=== PATIENT | female | born 1940 | race Caucasian/White ===

== ENCOUNTER 2017-11-22 05:44 | Inpatient (IN) ==
--- NOTE | 2017-11-22 05:57 | Emergency Department Note ---
Disposition Clinical Impression: Altered mental status Qualifiers: Altered mental status type: unspecified Qualified Code(s): R41.82 - Altered mental status, unspecified Mastoiditis Qualifiers: Laterality: left Qualified Code(s): H70.92 - Unspecified mastoiditis, left ear Disposition: Still a Patient Condition: Fair Referrals: Heath Darnell MD [Primary Care Provider] - Forms: ED Satisfaction Letter Altered Mental Status HPI - General Chief Complaint: ED Altered Mental Status Stated Complaint: hypoglycemia Time Seen by Provider: 11/22/17 05:48 Source: patient, EMS Mode of arrival: EMS Limitations: altered mental status Nursing Notes Reviewed: Yes Vital Signs Reviewed: Yes - History of Present Illness HPI Narrative: 77-year-old female history of congestive heart failure, COPD, diabetes, chronic kidney disease who presents to the ER via EMS due to altered mental status. EMS reports when they first arrived she was 64 blood glucose. She received 1 amp of D50 with improvement of her sugar. Patient arrives alert and oriented 2. She is easily somnolent but arouses to verbal stimuli. She has vomited on her closed but does not remember throwing up. She currently denies any headache chest pain shortness of breath abdominal pain nausea or vomiting. There is report that they changed her diabetic medications a few days ago. She states that she take shots. No other complaints. MD complaint: altered mental status Onset (ago): unknown Associated symptoms: Reports: denies other symptoms Treatments prior to arrival: glucose - Related Data Home Medications Medication Instructions Recorded Confirmed Allopurinol 100 mg PO DAILY 08/08/16 06/17/17 Amlodipine Besylate 10 mg PO DAILY 08/08/16 06/17/17 Atorvastatin [Lipitor] 40 mg PO HS 08/08/16 06/17/17 Bimatoprost [Lumigan] 1 drop OP QPM 08/08/16 06/17/17 Calcitriol [Rocaltrol] 0.25 mcg PO DAILY 08/08/16 06/17/17 Cyclobenzaprine [Flexeril] 10 mg PO DAILY 08/08/16 06/17/17 Fluticasone/Salmeterol [Advair 1 each IH BID 08/08/16 06/17/17 250-50 Diskus] Furosemide [Lasix] 80 mg PO BID 08/08/16 06/17/17 Gabapentin [Neurontin] 100 mg PO TID 08/08/16 06/17/17 Hydralazine HCl 100 mg PO TID 08/08/16 06/17/17 Insulin LISPRO [HumaLOG] 35 units SQ TID 08/08/16 06/17/17 Linagliptin [Tradjenta] 5 mg PO DAILY 08/08/16 06/17/17 Metoprolol [Lopressor] 100 mg PO BID 08/08/16 06/17/17 Omeprazole [PriLOSEC] 20 mg PO DAILY 08/08/16 06/17/17 Oxygen 2 l NS AD 08/08/16 08/08/16 cloNIDine HCl [Clonidine HCl] 0.3 mg PO TID 08/08/16 06/17/17 Insulin Glargine,Hum.rec.anlog 65 unit SQ HS 06/17/17 06/17/17 [Basaglar Kwikpen U-100] Potassium Chloride [K-Tab ER] 20 meq PO QID 06/17/17 06/17/17 Previous Rx's Medication Instructions Recorded Aspirin 81 mg PO DAILY tab.chew 05/15/15 Clopidogrel [Plavix] 75 mg PO DAILY tablet 05/15/15 Levothyroxine [Synthroid] 150 mcg PO 0600 tablet 05/15/15 Ipratropium/Albuterol Neb [Duoneb] 3 ml IH Q4HR #30 vial.neb 11/22/16 Allergies Allergy/AdvReac Type Severity Reaction Status Date / Time carbamazepine Allergy Hives Verified 06/17/17 09:27 promethazine Allergy See Verified 06/17/17 09:27 Comments All systems ED: reviewed and negative except as stated. Constitutional: Denies: fever Cardiovascular: Denies: chest pain Respiratory: Denies: dyspnea Gastrointestinal: Denies: abdominal pain, nausea, vomiting Past Medical History - Past Medical History Attestation: Yes The following information was validated with the patient. 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 - Social History Smoking Status: Former smoker Smokeless Tobacco Status: No Alcohol use: Reports: none Drug use: Reports: none Physical Exam - General Limitations: altered mental status General appearance: alert, appears intoxicated - Head Head exam: atraumatic, normocephalic, normal inspection - Eye Eye exam: Present: normal appearance - ENT ENT exam: normal exam - Neck Neck exam: Present: normal inspection, full ROM - Chest Chest inspection: Present: normal inspection, symmetric chest wall rise - Respiratory Respiratory exam: Present: normal lung sounds bilaterally - Cardiovascular Cardiovascular exam: Present: regular rate, normal rhythm, normal heart sounds - Abdominal Exam Abdominal exam: Present: soft, Non-Tender, distention. Absent: tenderness, guarding, rigidity - Extremities Exam Extremities exam: Present: normal inspection, full ROM - Expanded Upper Extremity Exam Shoulder exam: Present: normal inspection, full ROM Arm exam: Present: normal inspection, full ROM Elbow exam: Present: normal inspection, full ROM Forearm/Wrist exam: Present: normal inspection, full ROM Hand exam: Present: normal inspection, full ROM - Expanded Lower Extremity Exam Hip/Pelvis exam: Present: normal inspection, full ROM Upper leg exam: Present: normal inspection, full ROM Knee exam: Present: normal inspection, full ROM Lower leg exam: Present: normal inspection, full ROM Ankle exam: Present: normal inspection, full ROM Foot/toe exam: Present: normal inspection, full ROM - Neurological Exam Neurological exam: Present: alert, other (GCS 14. Moves all extremities. No focal deficits.). Absent: oriented X3 - Expanded Neurological Exam Patient oriented to: Present: person, place Speech: Present: fluid speech Coma Scale Eye Opening: To Voice Coma Scale Motor Response: Obeys Commands Coma Scale Verbal Response: Oriented Coma Scale Total: 14 - Skin Skin exam: Present: warm, dry Course Course Narrative: Patient seen and examined the time of arrival. Accu-Chek of 205. She remains altered. We will get an EKG, chest x-ray as well as CT of the head, labs and urinalysis. Vital Signs Temperature 97.4 F L 11/22/17 05:45 Pulse Rate 64 11/22/17 05:45 Respiratory Rate 18 11/22/17 05:45 Blood Pressure 158/77 11/22/17 05:45 O2 Sat by Pulse Oximetry 97 11/22/17 05:45 Temperature 97.4 F L 11/22/17 05:45 Pulse Rate 62 11/22/17 06:28 Respiratory Rate 16 11/22/17 06:28 Blood Pressure 169/70 11/22/17 06:28 O2 Sat by Pulse Oximetry 97 11/22/17 06:28 Oxygen Delivery Oxygen Delivery Room Air Altered Mental Status - MDM Narrative Medical decision making narrative: 77-year-old female presents to the ER due to altered mental status. Initially was noted to be hypoglycemic at 60 and received D50 prior to arrival. Upon arrival she is alert and oriented 2. She has sluggish to respond. No focal deficits. CT scan of the head with concern for mastoiditis. X-ray with also concern for atelectatic changes versus pneumonia. Patient is signed out sedation team in stable condition pending results of laboratory analysis and final disposition. - Lab Data Lab Results 11/22/17 11/22/17 11/22/17 Range/Units 05:47 05:58 05:58 POC Glucose 205 H (58-89) Urine Color Yellow (Yellow) Urine Clarity Clear (Clear) Urine pH 7.5 (5.0-8.0) pH Units Ur Specific [place] 1.012 (1.010-1.025) Urine Protein 100 H (Neg-Trace) mg/dL Urine Glucose (UA) Normal (Normal) mg/dL Urine Ketones Negative (Negative) mg/dL Urine Blood Negative (Negative) Urine Nitrite Negative (Negative) Urine Bilirubin Negative (Negative) Urine Urobilinogen Normal (Normal) mg/dL Ur Leukocyte Esterase Negative (Negative) Urine Microscopic RBC 0-3 (0-3) per hpf Urine Microscopic WBC 0-3 (0-3) per hpf Ur Squamous Epith Cells Many H (None-Few) per lpf Urine Bacteria None Seen (None-Few) per hpf Hyaline Casts None Seen (None-Few) per lpf Ur Culture Indicated? NO (NO) Urine Opiates Screen Negative (Ebntax=177) ng/mL Ur Barbiturates Screen Negative (Vvvomc=479) ng/mL Ur Phencyclidine Scrn Negative (Cutoff=25) ng/mL Ur Amphetamines Screen Negative (Vbnqcm=1433) ng/mL U Benzodiazepines Scrn Negative (Xbbsji=495) ng/mL Urine Cocaine Screen Negative (Cutoff= 300) ng/mL U Marijuana (THC) Screen Negative (Cutoff = 50) ng/mL - Radiology Data Radiology results reviewed: Yes I reviewed the patient's radiology results. Chest X-Ray 11/22/17 05:54 IMPRESSION: Development of right middle lobe airspace disease, likely atelectasis versus aspiration or pneumonia. D/ / Jovi Martinez / Jovi Martinez Interpreting Provider: Jovi Martinez Head CT 11/22/17 05:55 IMPRESSION: No acute intracranial abnormality. Left-sided mastoiditis and bilateral sphenoid sinusitis. D/ / Kristian Quintanilla MD / Kristian Quintanilla MD Interpreting Provider: Kristian Quintanilla MD - EKG Data EKG attestation: Yes I reviewed and interpreted this EKG. EKG results narrative: EKG demonstrates sinus rhythm with a rate of 67 bpm. Normal axis. First- degree AV block with prolonged PA interval of 244. Intervals normal. Normal R- wave progression. No gross ST elevations or depressions. No acute ischemic findings. No significant changes from previous EKG dated 11/22/16. Attestation Statement - Attestation Attestation: I, Zeferino Hernandez MD, personally evaluated this patient and discussed their management with the resident physician. I reviewed the resident's note and agree with the documented findings, medical decision making, and plan of care. 77-year-old female presents to the emergency department for altered mental status. Patient is insulin-dependent diabetic and apparently recently had her medication doses changes. EMS reports that she normally runs around 200 blood sugar and at the scene her blood sugar was 60. She did receive an amp of D50 with some improvement in her mental status. On arrival here the patient is still somewhat disoriented and slow to respond. She has no specific complaints. She denies any pain. She does not remember vomiting but has emesis on her clothes. On examination patient is a well-developed obese elderly female in no acute distress. She responds to verbal stimuli but is drowsy and slow to respond. Fingerstick blood sugar was 205. No cyanosis or diaphoresis. Breath sounds are equal bilaterally with a few scattered bilateral expiratory wheezes. Heart regular rate and rhythm. Abdomen soft with normal bowel sounds. No gross focal neurological deficits noted. Chest x-ray shows development of right middle lobe airspace disease, likely atelectasis versus aspiration or pneumonia. Head CT shows no acute intracranial abnormality. Left-sided mastoiditis and bilateral sphenoid sinusitis. Urinalysis negative. Urine tox screen negative. Other labs pending. At shift change patient is signed out to the oncoming dayshift physician, Dr. Farideh Page.
[2017-11-22 06:12] LABS: Amphetamine Screen,Urine Negative ng/mL (Cutoff=1000); Barbiturate Screen,Urine Negative ng/mL (Cutoff=200); Benzodiazepines Screen,Urine Negative ng/mL (Cutoff=200); Cannabinoid Screen,Urine Negative ng/mL (Cutoff = 50); Cocaine Screen,Urine Negative ng/mL (Cutoff= 300); Opiate Screen,Urine Negative ng/mL (Cutoff=300); Phencyclidine Screen,Urine Negative ng/mL (Cutoff=25)
[2017-11-22 06:36] LABS: Bilirubin,Urine Negative (Negative); Blood,Urine Negative (Negative); Clarity,Urine Clear (Clear); Color,Urine Yellow (Yellow); Glucose,Urine (UA) Normal (Normal); Ketones,Urine Negative (Negative); Leukocyte Esterase,Urine Negative (Negative); Nitrite,Urine Negative (Negative); PH,Urine 7.5 pH Units (5.0-8.0); Protein,Urine 100 mg/dL (Neg-Trace); Specific Gravity,Urine 1.012 (1.010-1.025); Urobilinogen,Urine Normal (Normal)
[2017-11-22 06:38] LABS: Bacteria,Urine None Seen per hpf (None-Few); Hyaline Casts,Urine None Seen per lpf (None-Few); RBC,Urine 0-3 per hpf (0-3); Squamous Epithelial Cell,Urine Many per lpf (None-Few); WBC,Urine 0-3 per hpf (0-3)
[2017-11-22 06:52] LABS: Basophils % 0.2 %; Eosinophils % 0.2 %; Hematocrit 33.2 % (35.3-44.9); Hemoglobin 10.4 g/dL (11.5-15.4); Immature Granulocytes % 0.5 % (0-4); Lymphocytes # 1.3 K/mcL (0.6-4.6); Lymphocytes % 13.4 %; Mean Corpuscular HGB Conc 31.3 g/dL (31.6-35.5); Mean Corpuscular Hemoglobin 29.6 pg (28.0-33.3); Mean Corpuscular Volume 94.6 fL (83.0-100.0); Mean Platelet Volume 9.7 fL (9.4-12.4); Monocytes # 0.4 K/mcL (0.0-1.3); Monocytes % 4.2 %; Neutrophils # 7.6 K/mcL (1.6-8.9); Platelet Count 202 K/mcL (140-400); Red Blood Count 3.51 M/mcL (3.82-4.97); Red Cell Distribution Width 17.2 % (11.5-14.5); Segmented Neutrophils % 81.5 %
[2017-11-22 06:58] LABS: INR 1.1; Prothrombin Time 11.3 Seconds (9.4-12.1)
[2017-11-22 07:00] LABS: Activated Partial Thrombo Time 27.8 Seconds (26.0-36.0)
[2017-11-22 07:10] LABS: Albumin 3.8 g/dL (3.5-5.7); Albumin/Globulin Ratio 1.1 (1.1-2.2); Bilirubin,Direct 0.1 mg/dL (0.0-0.2); Bilirubin,Indirect 0.3 mg/dL (0.0-1.2); Bilirubin,Total 0.4 mg/dL (0.3-1.0); Calcium 8.4 mg/dL (8.6-10.3); Globulin 3.6 g/dL (2.4-3.5); Potassium 3.7 mEq/L (3.5-5.1); Total Protein 7.4 g/dL (6.4-8.9)
--- NOTE | 2017-11-22 07:16 | Emergency Department Note ---
START Narrative - START START: I examined this patient and my medical decision-making was reviewed with the Resident Physician. I agree with the documented findings, disposition and treatment plan as described except to the extent set forth below. accepted sign out from the night team (guy/Kimber) and plan is to followup on the labs and admit he for altered mental status. Amadou has had in jury to her abdomen yesterday and she sttes that seh feels incresingly more conused. HCT shows mastoiditis, and her CXR appers to have worsened from previous. Concern for pnuemonia. We will futher investigate the abdominal echhymosis with US and possibly ABCT. Amadou will be admitted to medicine today
[2017-11-22 07:28] LABS: Thyroid Stimulating Hormone 2.595 mcIU/mL (0.340-5.600)
--- NOTE | 2017-11-22 07:29 | Emergency Department Note ---
Disposition Clinical Impression: Altered mental status Qualifiers: Altered mental status type: unspecified Qualified Code(s): R41.82 - Altered mental status, unspecified Mastoiditis Qualifiers: Laterality: left Qualified Code(s): H70.92 - Unspecified mastoiditis, left ear Pneumonia Qualifiers: Pneumonia type: due to unspecified organism Laterality: right Lung location: middle lobe of lung Qualified Code(s): J18.1 - Lobar pneumonia, unspecified organism Disposition: Admitted As Inpatient Condition: Fair Time of Disposition: 08:37 Altered Mental Status HPI - General Chief Complaint: ED Altered Mental Status Stated Complaint: hypoglycemia Time Seen by Provider: 11/22/17 05:48 Source: patient, EMS Mode of arrival: EMS Limitations: altered mental status Nursing Notes Reviewed: Yes Vital Signs Reviewed: Yes - History of Present Illness Associated symptoms: Reports: denies other symptoms - Related Data Home Medications Medication Instructions Recorded Confirmed Allopurinol 100 mg PO DAILY 08/08/16 06/17/17 Amlodipine Besylate 10 mg PO DAILY 08/08/16 06/17/17 Atorvastatin [Lipitor] 40 mg PO HS 08/08/16 06/17/17 Bimatoprost [Lumigan] 1 drop OP QPM 08/08/16 06/17/17 Calcitriol [Rocaltrol] 0.25 mcg PO DAILY 08/08/16 06/17/17 Cyclobenzaprine [Flexeril] 10 mg PO DAILY 08/08/16 06/17/17 Fluticasone/Salmeterol [Advair 1 each IH BID 08/08/16 06/17/17 250-50 Diskus] Furosemide [Lasix] 80 mg PO BID 08/08/16 06/17/17 Gabapentin [Neurontin] 100 mg PO TID 08/08/16 06/17/17 Hydralazine HCl 100 mg PO TID 08/08/16 06/17/17 Insulin LISPRO [HumaLOG] 35 units SQ TID 08/08/16 06/17/17 Linagliptin [Tradjenta] 5 mg PO DAILY 08/08/16 06/17/17 Metoprolol [Lopressor] 100 mg PO BID 08/08/16 06/17/17 Omeprazole [PriLOSEC] 20 mg PO DAILY 08/08/16 06/17/17 Oxygen 2 l NS AD 08/08/16 08/08/16 cloNIDine HCl [Clonidine HCl] 0.3 mg PO TID 08/08/16 06/17/17 Insulin Glargine,Hum.rec.anlog 65 unit SQ HS 06/17/17 06/17/17 [Basaglar Arthurikpen U-100] Potassium Chloride [K-Tab ER] 20 meq PO QID 06/17/17 06/17/17 Previous Rx's Medication Instructions Recorded Aspirin 81 mg PO DAILY tab.chew 05/15/15 Clopidogrel [Plavix] 75 mg PO DAILY tablet 05/15/15 Levothyroxine [Synthroid] 150 mcg PO 0600 tablet 05/15/15 Ipratropium/Albuterol Neb [Duoneb] 3 ml IH Q4HR #30 vial.neb 11/22/16 Allergies Allergy/AdvReac Type Severity Reaction Status Date / Time carbamazepine Allergy Hives Verified 06/17/17 09:27 promethazine Allergy See Verified 06/17/17 09:27 Comments Constitutional: Denies: fever Cardiovascular: Denies: chest pain Respiratory: Denies: dyspnea Gastrointestinal: Denies: abdominal pain, nausea, vomiting Past Medical History - Past Medical History Medical history: Reports: CHF, COPD, coronary artery disease, diabetes, GERD, hyperlipidemia, hypertension, renal disease Surgical history: Reports: breast surgery, cataract, hysterectomy, thyroidectomy , other Psychiatric history: Reports: anxiety 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 Escamilla at 0700. Please see his note for earlier documentation. Patient is a 77-year-old female with altered mental status. Glucose was 64 when EMS picked her up. Now in the 200s. Patient is awake alert and not as responsive as she normally is per family at the bedside. Recent change in her diabetic insulin medication. Patient had also fallen the night before. FAST exam negative. Patient does not have any abdominal pain. CT head shows possible left mastoiditis and sinusitis. Chest x-ray shows atelectasis/pneumonia. UA/UDS negative. Awaiting lab work. Plan for admission for AMS. - Reevaluation(s) Reevaluation #1: Labwork unremarkable. Patient has baseline anemia and CKD. Since her chest x- ray shows some signs of pneumonia, we will we will cover her with IV Levaquin. Blood culture ordered first. Will admit for altered mental status, pneumonia, weakness. I discussed with hospitalist Dr. Murray who has accepted patient for admission. He would like a VBG drawn. This was ordered. Time: 08:35 Vital Signs Temperature 97.4 F L 11/22/17 05:45 Pulse Rate 64 11/22/17 05:45 Respiratory Rate 18 11/22/17 05:45 Blood Pressure 158/77 11/22/17 05:45 O2 Sat by Pulse Oximetry 97 11/22/17 05:45 Temperature 97.4 F L 11/22/17 05:45 Pulse Rate 68 11/22/17 08:45 Respiratory Rate 18 11/22/17 08:45 Blood Pressure 154/60 11/22/17 08:45 O2 Sat by Pulse Oximetry 98 11/22/17 08:45 Oxygen Delivery Oxygen Delivery Nasal Cannula Altered Mental Status - Medical Records Medical records reviewed: Yes I reviewed the patient's medical records. - Lab Data Lab results reviewed: Yes I reviewed the patient's lab results. Result diagrams: 11/22/17 06:45 11/22/17 06:45 Lab Results 11/22/17 11/22/17 11/22/17 Range/Units 05:47 05:58 05:58 WBC (4.3-11.1) K/mcL RBC (3.82-4.97) M/mcL Hgb (11.5-15.4) g/dL Hct (35.3-44.9) % MCV (83.0-100.0) fL MCH (28.0-33.3) pg MCHC (31.6-35.5) g/dL RDW (11.5-14.5) % Plt Count (140-400) K/mcL MPV (9.4-12.4) fL Immature Gran % (0-4) % Seg Neutrophils % % Lymphocytes % % Monocytes % % Eosinophils % % Basophils % % Neutrophils # (1.6-8.9) K/mcL Lymphocytes # (0.6-4.6) K/mcL Monocytes # (0.0-1.3) K/mcL Eosinophils # (0.0-0.6) K/mcL Basophils # (0.0-0.2) K/mcL PT (9.4-12.1) Seconds INR APTT (26.0-36.0) Seconds VBG pH (7.32-7.42) pH Units VBG pCO2 (41-51) mmHg VBG pO2 (25-50) mmHg VBG HCO3 (21-27) mEq/L Sodium (136-145) mEq/L Potassium (3.5-5.1) mEq/L Chloride (98-107) mEq/L Carbon Dioxide (23-29) mEq/L BUN (8-23) mg/dL Creatinine (0.60-1.20) mg/dL Est GFR ( Amer) (> 60) Est GFR (Non-Af Amer) (> 60) BUN/Creatinine Ratio (6-26) Glucose (70-105) mg/dL POC Glucose 205 H (58-89) Calculated Osmolality (280-300) Calcium (8.6-10.3) mg/dL Total Bilirubin (0.3-1.0) mg/dL Direct Bilirubin (0.0-0.2) mg/dL Indirect Bilirubin (0.0-1.2) mg/dL AST (13-39) Units/L ALT (7-52) Units/L Alkaline Phosphatase (34-104) Units/L Ammonia (16-53) mcmol/L Troponin I (< 0.04) ng/mL Serum Total Protein (6.4-8.9) g/dL Albumin (3.5-5.7) g/dL Globulin (2.4-3.5) g/dL Albumin/Globulin Ratio (1.1-2.2) TSH (0.340-5.600) mcIU/mL Urine Color Yellow (Yellow) Urine Clarity Clear (Clear) Urine pH 7.5 (5.0-8.0) pH Units Ur Specific [place] 1.012 (1.010-1.025) Urine Protein 100 H (Neg-Trace) mg/dL Urine Glucose (UA) Normal (Normal) mg/dL Urine Ketones Negative (Negative) mg/dL Urine Blood Negative (Negative) Urine Nitrite Negative (Negative) Urine Bilirubin Negative (Negative) Urine Urobilinogen Normal (Normal) mg/dL Ur Leukocyte Esterase Negative (Negative) Urine Microscopic RBC 0-3 (0-3) per hpf Urine Microscopic WBC 0-3 (0-3) per hpf Ur Squamous Epith Cells Many H (None-Few) per lpf Urine Bacteria None Seen (None-Few) per hpf Hyaline Casts None Seen (None-Few) per lpf Ur Culture Indicated? NO (NO) Urine Opiates Screen Negative (Wwrgii=075) ng/mL Ur Barbiturates Screen Negative (Lnmgpi=187) ng/mL Ur Phencyclidine Scrn Negative (Cutoff=25) ng/mL Ur Amphetamines Screen Negative (Nwfzbx=7242) ng/mL U Benzodiazepines Scrn Negative (Chlerh=361) ng/mL Urine Cocaine Screen Negative (Cutoff= 300) ng/mL U Marijuana (THC) Screen Negative (Cutoff = 50) ng/mL 11/22/17 11/22/17 11/22/17 Range/Units 06:45 06:45 06:45 WBC 9.3 (4.3-11.1) K/mcL RBC 3.51 L (3.82-4.97) M/mcL Hgb 10.4 L (11.5-15.4) g/dL Hct 33.2 L (35.3-44.9) % MCV 94.6 (83.0-100.0) fL MCH 29.6 (28.0-33.3) pg MCHC 31.3 L (31.6-35.5) g/dL RDW 17.2 H (11.5-14.5) % Plt Count 202 (140-400) K/mcL MPV 9.7 (9.4-12.4) fL Immature Gran % 0.5 (0-4) % Seg Neutrophils % 81.5 % Lymphocytes % 13.4 % Monocytes % 4.2 % Eosinophils % 0.2 % Basophils % 0.2 % Neutrophils # 7.6 (1.6-8.9) K/mcL Lymphocytes # 1.3 (0.6-4.6) K/mcL Monocytes # 0.4 (0.0-1.3) K/mcL Eosinophils # 0.0 (0.0-0.6) K/mcL Basophils # 0.0 (0.0-0.2) K/mcL PT 11.3 (9.4-12.1) Seconds INR 1.1 APTT 27.8 (26.0-36.0) Seconds VBG pH (7.32-7.42) pH Units VBG pCO2 (41-51) mmHg VBG pO2 (25-50) mmHg VBG HCO3 (21-27) mEq/L Sodium 137 (136-145) mEq/L Potassium 3.7 (3.5-5.1) mEq/L Chloride 98 (98-107) mEq/L Carbon Dioxide 25 (23-29) mEq/L BUN 34 H (8-23) mg/dL Creatinine 1.48 H (0.60-1.20) mg/dL Est GFR ( Amer) 41 L (> 60) Est GFR (Non-Af Amer) 34 L (> 60) BUN/Creatinine Ratio 23 (6-26) Glucose 154 H (70-105) mg/dL POC Glucose (58-89) Calculated Osmolality 295 (280-300) Calcium 8.4 L (8.6-10.3) mg/dL Total Bilirubin 0.4 (0.3-1.0) mg/dL Direct Bilirubin 0.1 (0.0-0.2) mg/dL Indirect Bilirubin 0.3 (0.0-1.2) mg/dL AST 39 (13-39) Units/L ALT 35 (7-52) Units/L Alkaline Phosphatase 82 (34-104) Units/L Ammonia (16-53) mcmol/L Troponin I (< 0.04) ng/mL Serum Total Protein 7.4 (6.4-8.9) g/dL Albumin 3.8 (3.5-5.7) g/dL Globulin 3.6 H (2.4-3.5) g/dL Albumin/Globulin Ratio 1.1 (1.1-2.2) TSH 2.595 (0.340-5.600) mcIU/mL Urine Color (Yellow) Urine Clarity (Clear) Urine pH (5.0-8.0) pH Units Ur Specific [place] (1.010-1.025) Urine Protein (Neg-Trace) mg/dL Urine Glucose (UA) (Normal) mg/dL Urine Ketones (Negative) mg/dL Urine Blood (Negative) Urine Nitrite (Negative) Urine Bilirubin (Negative) Urine Urobilinogen (Normal) mg/dL Ur Leukocyte Esterase (Negative) Urine Microscopic RBC (0-3) per hpf Urine Microscopic WBC (0-3) per hpf Ur Squamous Epith Cells (None-Few) per lpf Urine Bacteria (None-Few) per hpf Hyaline Casts (None-Few) per lpf Ur Culture Indicated? (NO) Urine Opiates Screen (Uzsutm=798) ng/mL Ur Barbiturates Screen (Yfzayd=315) ng/mL Ur Phencyclidine Scrn (Cutoff=25) ng/mL Ur Amphetamines Screen (Oelovt=6368) ng/mL U Benzodiazepines Scrn (Gncble=449) ng/mL Urine Cocaine Screen (Cutoff= 300) ng/mL U Marijuana (THC) Screen (Cutoff = 50) ng/mL 11/22/17 11/22/17 11/22/17 Range/Units 06:45 06:45 08:59 WBC (4.3-11.1) K/mcL RBC (3.82-4.97) M/mcL Hgb (11.5-15.4) g/dL Hct (35.3-44.9) % MCV (83.0-100.0) fL MCH (28.0-33.3) pg MCHC (31.6-35.5) g/dL RDW (11.5-14.5) % Plt Count (140-400) K/mcL MPV (9.4-12.4) fL Immature Gran % (0-4) % Seg Neutrophils % % Lymphocytes % % Monocytes % % Eosinophils % % Basophils % % Neutrophils # (1.6-8.9) K/mcL Lymphocytes # (0.6-4.6) K/mcL Monocytes # (0.0-1.3) K/mcL Eosinophils # (0.0-0.6) K/mcL Basophils # (0.0-0.2) K/mcL PT (9.4-12.1) Seconds INR APTT (26.0-36.0) Seconds VBG pH 7.42 (7.32-7.42) pH Units VBG pCO2 49 (41-51) mmHg VBG pO2 57 H (25-50) mmHg VBG HCO3 31 H (21-27) mEq/L Sodium (136-145) mEq/L Potassium (3.5-5.1) mEq/L Chloride (98-107) mEq/L Carbon Dioxide (23-29) mEq/L BUN (8-23) mg/dL Creatinine (0.60-1.20) mg/dL Est GFR ( Amer) (> 60) Est GFR (Non-Af Amer) (> 60) BUN/Creatinine Ratio (6-26) Glucose (70-105) mg/dL POC Glucose (58-89) Calculated Osmolality (280-300) Calcium (8.6-10.3) mg/dL Total Bilirubin (0.3-1.0) mg/dL Direct Bilirubin (0.0-0.2) mg/dL Indirect Bilirubin (0.0-1.2) mg/dL AST (13-39) Units/L ALT (7-52) Units/L Alkaline Phosphatase (34-104) Units/L Ammonia 30 (16-53) mcmol/L Troponin I < 0.03 (< 0.04) ng/mL Serum Total Protein (6.4-8.9) g/dL Albumin (3.5-5.7) g/dL Globulin (2.4-3.5) g/dL Albumin/Globulin Ratio (1.1-2.2) TSH (0.340-5.600) mcIU/mL Urine Color (Yellow) Urine Clarity (Clear) Urine pH (5.0-8.0) pH Units Ur Specific [place] (1.010-1.025) Urine Protein (Neg-Trace) mg/dL Urine Glucose (UA) (Normal) mg/dL Urine Ketones (Negative) mg/dL Urine Blood (Negative) Urine Nitrite (Negative) Urine Bilirubin (Negative) Urine Urobilinogen (Normal) mg/dL Ur Leukocyte Esterase (Negative) Urine Microscopic RBC (0-3) per hpf Urine Microscopic WBC (0-3) per hpf Ur Squamous Epith Cells (None-Few) per lpf Urine Bacteria (None-Few) per hpf Hyaline Casts (None-Few) per lpf Ur Culture Indicated? (NO) Urine Opiates Screen (Odjjof=206) ng/mL Ur Barbiturates Screen (Lmioag=531) ng/mL Ur Phencyclidine Scrn (Cutoff=25) ng/mL Ur Amphetamines Screen (Ljvofw=4455) ng/mL U Benzodiazepines Scrn (Znidkj=361) ng/mL Urine Cocaine Screen (Cutoff= 300) ng/mL U Marijuana (THC) Screen (Cutoff = 50) ng/mL - Radiology Data Radiology results reviewed: Yes I reviewed the patient's radiology results. Chest X-Ray 11/22/17 05:54 IMPRESSION: Development of right middle lobe airspace disease, likely atelectasis versus aspiration or pneumonia. D/ / Jovi Martinez / Jovi Martinez Interpreting Provider: Jovi Martinez Head CT 11/22/17 05:55 IMPRESSION: No acute intracranial abnormality. Left-sided mastoiditis and bilateral sphenoid sinusitis. D/ / Kristian Quintanilla MD / Kristian Quintanilla MD Interpreting Provider: Kristian Quintanilla MD Checklist - LKW: 3-4.5 hrs Add. Warnings/Precautions Patient/family understanding: The patient/family members have been counseled and understood the risk, benefit , and alternatives of treatment.
[2017-11-22] MEDS ORDERED: Levofloxacin 750 MG/150 ML 750 MG/150 ML BAG IVPB ONE (08:04)
[2017-11-22 09:03] LABS: VBG HCO3 31 mEq/L (21-27); VBG PCO2 49 mmHg (41-51); VBG PH 7.42 pH Units (7.32-7.42); VBG PO2 57 mmHg (25-50)
[2017-11-22] MEDS ORDERED: Naloxone 0.4 MG/ML INJ IVP PRN (10:32)
[2017-11-22] MEDS ORDERED: Acetaminophen 325 MG TABLET PO PRN (10:32)
[2017-11-22] MEDS ORDERED: Dextrose Gel 15 GM/37.5 ML TUBE PO PRN ×2 (10:41)
[2017-11-22] MEDS ORDERED: D5% in Water 1,000 ML IVC PRN (10:41)
[2017-11-22] MEDS ORDERED: *HR* Dextrose 50 % in Water (Syg) 50 ML SYRINGE IVP PRN (10:41)
--- NOTE | 2017-11-22 10:44 | Internal Med History&Physical ---
Date of Encounter: 11/22/17 Time of Encounter: 10:44 Assessment and Plan (1) Metabolic encephalopathy Current visit: Yes Status: Acute Likely secondary to pneumonia, hypoglycemia and possibly compounded by polypharmacy and renal failure. We will treat pneumonia. Monitor blood glucose 4 times daily. Hold long- acting insulin. [place] fall precautions. (2) Type 2 diabetes mellitus, with long-term current use of insulin Current visit: Yes Status: Acute Qualifiers: Diabetes mellitus complication status: with kidney complications Diabetes mellitus complication detail: with chronic kidney disease Chronic kidney disease stage: stage 3 (moderate) Qualified Code(s): E11.22 - Type 2 diabetes mellitus with diabetic chronic kidney disease; N18.3 - Chronic kidney disease, stage 3 (moderate); N18.3 - Chronic kidney disease, stage 3 (moderate); Z79.4 - local company intermodal truck driver (current) use of insulin; Z79.4 - local company intermodal truck driver (current) use of insulin; Z79.4 - group home (current) use of insulin; Z79.4 - group home (current) use of insulin (3) Pneumonia Current visit: Yes Status: Acute IV Levaquin. Follow-up blood cultures. Obtain Legionella and pneumococcal antigens. Check pro calcitonin. Supplemental oxygen by nasal cannula. Curb 65 is 3 which carries a 14% 30 day mortality risk. Qualifiers: Pneumonia type: due to unspecified organism Laterality: right Lung location: middle lobe of lung Qualified Code(s): J18.1 - Lobar pneumonia, unspecified organism (4) COPD (chronic obstructive pulmonary disease) Current visit: No Status: Acute Inhaled albuterol and ipratropium. Qualifiers: COPD type: unspecified COPD Qualified Code(s): J44.9 - Chronic obstructive pulmonary disease, unspecified (5) Morbid obesity Current visit: No Status: Acute (6) Stage III chronic kidney disease Current visit: No Status: Chronic Monitor kidney function. Hold Lasix due to volume depletion. (7) DVT prophylaxis Current visit: Yes Status: Acute Subcutaneous Lovenox Internal Medicine - H&P: HPI Chief complaint: Mental confusion Admitted From: Emergency Dept Plans for Post Hospital Care: Home History of present illness: Ms. Hall is a 77 year old female with past medical history significant for hypertension COPD CAD diabetes, morbid obesity, hyperlipidemia, chronic renal insufficiency who presented to the hospital brought by EMS for evaluation of confusion and low blood glucose. History provided by the patient is limited by confusion. Per the patient's son she was severely confused early this morning. Her daughter gave her apple juice and called EMS. Her leukocytosis was 64. She was given IV dextrose and brought to the hospital. She reports a history of fall cannot provide details. In the emergency department blood glucose was in the 200s. Chest x-ray shows right middle lobe infiltrate. She was given IV fluids and IV antibiotics and referred for admission. Review of systems: Also complains of abdominal pain, cannot elaborate. The remainder of a 10 point review of systems is negative. Past Med Surg Social Fam HX - Past Medical History Medical history: CHF, COPD, coronary artery disease, diabetes, GERD, hyperlipidemia, hypertension, renal disease Psychiatric history: anxiety - Past Surgical History Surgical History: breast surgery, cataract, hysterectomy, thyroidectomy, other - Social History Smoking Status: Former smoker Smokeless Tobacco Status: No Alcohol use: none Drug use: none - Family History Mother Family Member Ethnicity: Non- Living Status: Hx Family Neurologic Disorders: Yes (Alzheimers) Brother Family Member Ethnicity: Non- Living Status: Still Living Hx Family Cardiac Disorders: Yes (CABG) Internal Medicine - H&P: Meds Aspirin 81 mg PO DAILY tab.chew 05/15/15 [Rx] Clopidogrel [Plavix] 75 mg PO DAILY tablet 05/15/15 [Rx] Allopurinol 100 mg PO DAILY 08/08/16 [History] Amlodipine Besylate 10 mg PO DAILY 08/08/16 [History] Atorvastatin [Lipitor] 40 mg PO HS 08/08/16 [History] Bimatoprost [Lumigan] 1 drop OP QPM 08/08/16 [History] Calcitriol [Rocaltrol] 0.25 mcg PO DAILY 08/08/16 [History] Cyclobenzaprine [Flexeril] 10 mg PO HS 08/08/16 [History] Fluticasone/Salmeterol [Advair 250-50 Diskus] 1 puff IH BID 08/08/16 [History] Furosemide [Lasix] 80 mg PO BID 08/08/16 [History] Gabapentin [Neurontin] 100 mg PO TID 08/08/16 [History] Hydralazine HCl 100 mg PO TID 08/08/16 [History] Linagliptin [Tradjenta] 5 mg PO DAILY 08/08/16 [History] Metoprolol [Lopressor] 100 mg PO BID 08/08/16 [History] Omeprazole [PriLOSEC] 20 mg PO BID 08/08/16 [History] Oxygen 2 l NS AD 08/08/16 [History] cloNIDine HCl [Clonidine HCl] 0.3 mg PO TID 08/08/16 [History] Ipratropium/Albuterol Neb [Duoneb] 3 ml IH Q4HR #30 vial.neb 11/22/16 [Rx] Potassium Chloride [K-Tab ER] 20 meq PO QID 06/17/17 [History] Insulin Regular, Human [Humulin R U-500 Kwikpen] 70 unit SQ HS 11/22/17 [History ] Insulin Regular, Human [Humulin R U-500 Kwikpen] 80 unit SQ QAM 11/22/17 [ History] Isosorbide MONOnitrate (24 HR) [Imdur] 60 mg PO DAILY 11/22/17 [History] Levothyroxine [Synthroid] 150 mcg PO QAM 11/22/17 [History] 3 Allergy/AdvReac Type Severity Reaction Status Date / Time carbamazepine Allergy Hives Verified 06/17/17 09:27 promethazine Allergy See Verified 06/17/17 09:27 Comments All Systems PM: A 10-system review of systems was performed and is negative for pertinent findings except as documented above in the HPI. - Constitutional Vitals: Temp Pulse Resp BP Pulse Ox 97.4 F L 68 18 154/60 98 11/22/17 05:45 11/22/17 08:45 11/22/17 08:45 11/22/17 08:45 11/22/17 08:45 General appearance: Present: A&O X 2, mild distress - Eye Eye exam: Present: PERRL, conjuntiva pink, sclera anicteric Pupils: Present: PERRL - Respiratory Respiratory exam: Present: CTAB. Absent: accessory muscle use, rales, rhonchi, wheezes - Cardiovascular Cardiovascular exam: Present: RRR, +S1, +S2. Absent: diastolic murmur, gallop, rubs, systolic murmur - GI/Abdominal GI/Abdominal exam: Present: normal bowel sounds, soft, no peritoneal signs. Absent: distended, hernia, tenderness - Extremities Exam Extremities exam: Present: warm, radial pulses palpable and symmetrical. Absent : calf tenderness, cyanotic, pedal edema - Neurological Exam Neurological exam: Present: CN II-XII intact, oriented X3, no focal deficits. Absent: facial droop, speech deficit - Skin Skin exam: Present: dry, intact Internal Med - H&P Results - Labs CBC & Chem 7: 11/22/17 06:45 11/22/17 06:45
[2017-11-22] MEDS ORDERED: Levofloxacin 750 MG/150 ML 750 MG/150 ML BAG IVPB SCH (11:00)
[2017-11-22] MEDS: Ipratropium/Albuterol Neb 3 ML IH SCH ×5 (11:35→19:58)
[2017-11-22] MEDS: Insulin LISPRO 300 UNITS/3 ML VIAL SQ SCH ×5 (12:26→20:35)
[2017-11-22] MEDS ORDERED: Simethicone 80 MG TAB.CHEW PO PRN (13:45)
[2017-11-22] MEDS: Gabapentin 100 MG CAPSULE PO SCH ×2 (14:24→20:32)
[2017-11-22] MEDS: Aspirin 81 MG TAB.CHEW PO SCH (14:24)
[2017-11-22] MEDS: cloNIDine HCl 0.1 MG TABLET PO SCH ×2 (14:24→20:32)
[2017-11-22] MEDS ORDERED: Ondansetron 4 MG/2 ML VIAL IVP PRN (14:32)
[2017-11-22] MEDS ORDERED: HYDRALAZINE HCL 100 MG PO SCH (15:00)
[2017-11-22] MEDS ORDERED: NON-FORMULARY MEDICATION 1 EACH EACH (Potassium Chloride [K-Tab Er] 20 MEQ) PO SCH (17:00)
[2017-11-22] MEDS: hydrALAZINE 25 MG TABLET PO SCH (17:54)
[2017-11-22] MEDS: (Bimatoprost [Lumigan] 1 DROP) OP SCH (17:56)
[2017-11-22] MEDS: Budesonide/Formoterol 80/4.5 MDI IH SCH (19:53)
[2017-11-22] MEDS: Metoprolol 100 MG TABLET PO SCH (20:34)
[2017-11-23] MEDS: Ipratropium/Albuterol Neb 3 ML IH SCH ×9 (00:11→20:32)
[2017-11-23] MEDS: hydrALAZINE 25 MG TABLET PO SCH ×4 (00:22→23:50)
[2017-11-23 03:30] LABS: Hematocrit 29.9 % (35.3-44.9); Hemoglobin 9.7 g/dL (11.5-15.4); Immature Granulocytes % 0.5 % (0-4); Lymphocytes # 1.6 K/mcL (0.6-4.6); Lymphocytes % 22.3 %; Mean Corpuscular HGB Conc 32.4 g/dL (31.6-35.5); Mean Corpuscular Hemoglobin 29.6 pg (28.0-33.3); Mean Corpuscular Volume 91.2 fL (83.0-100.0); Mean Platelet Volume 9.6 fL (9.4-12.4); Monocytes # 0.5 K/mcL (0.0-1.3); Monocytes % 6.7 %; Neutrophils # 5.2 K/mcL (1.6-8.9); Platelet Count 241 K/mcL (140-400); Red Blood Count 3.28 M/mcL (3.82-4.97); Red Cell Distribution Width 17.4 % (11.5-14.5); Segmented Neutrophils % 70.5 %
[2017-11-23 05:50] LABS: Calcium 7.8 mg/dL (8.6-10.3); Potassium 4.5 mEq/L (3.5-5.1)
[2017-11-23] MEDS: *HR* Enoxaparin 30 MG/0.3 ML SYRINGE SQ SCH (06:05)
[2017-11-23] MEDS: Budesonide/Formoterol 80/4.5 MDI IH SCH ×2 (07:37→20:32)
[2017-11-23] MEDS ORDERED: 0.9 % Sodium Chloride 1,000 ML IVC SCH (08:00)
[2017-11-23] MEDS: Aspirin 81 MG TAB.CHEW PO SCH (08:42)
[2017-11-23] MEDS: cloNIDine HCl 0.1 MG TABLET PO SCH ×3 (08:42→21:01)
[2017-11-23] MEDS: Gabapentin 100 MG CAPSULE PO SCH ×3 (08:43→21:02)
[2017-11-23] MEDS: Metoprolol 100 MG TABLET PO SCH ×2 (08:43→21:02)
[2017-11-23] MEDS: amLODIPine 5 MG TABLET PO SCH (08:43)
[2017-11-23] MEDS: Isosorbide MONOnitrate (24 HR) 60 MG TAB.ER.24H PO SCH (08:43)
[2017-11-23] MEDS: Insulin LISPRO 300 UNITS/3 ML VIAL SQ SCH ×7 (08:44→21:06)
--- NOTE | 2017-11-23 13:41 | Internal Med Progress Note ---
Date of Encounter: 11/23/17 Time of Encounter: 13:39 - Assessment and plan (1) Metabolic encephalopathy Current Visit: Yes Status: Acute Assessment and plan: 1 likely secondary to pneumonia as well as hypoglycemia. We will continue treatment with pneumonia monitor glucose-which appears to be stable this time place patient on fall precautions (2) Pneumonia Current Visit: Yes Status: Acute Assessment and plan: We will continue with IV Levaquin-awaiting results of Legionella and pneumococcal antigens Oxygen as needed As well as bronchodilators Qualifiers: Pneumonia type: due to unspecified organism Laterality: right Lung location: middle lobe of lung Qualified Code(s): J18.1 - Lobar pneumonia, unspecified organism (3) Type 2 diabetes mellitus, with long-term current use of insulin Current Visit: Yes Status: Acute Assessment and plan: 1 patient had hypoglycemic episode on presentation we will hold basal insulin for now continue with sliding scale insulin and Accu-Cheks before meals at bedtime Diabetic diet Qualifiers: Diabetes mellitus complication status: with kidney complications Diabetes mellitus complication detail: with chronic kidney disease Chronic kidney disease stage: stage 3 (moderate) Qualified Code(s): E11.22 - Type 2 diabetes mellitus with diabetic chronic kidney disease; N18.3 - Chronic kidney disease, stage 3 (moderate); N18.3 - Chronic kidney disease, stage 3 (moderate); 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 Appears baseline is 1.5-2 Continue to monitor creatinine Avoid nephrotoxins Monitor intake and output daily weights Renal dose antibiotics (6) DVT prophylaxis Current Visit: Yes Status: Acute Assessment and plan: lovenox per renal dose - Time Spent With Patient less than 15 minutes - Subjective Interval history: Feels that she is breathing somewhat better. Noted some conversational dyspnea. Deneis any CP or other complaints - Constitutional Vitals: Temp Pulse Resp BP Pulse Ox 98.0 F 74 16 150/64 97 11/23/17 12:30 11/23/17 12:30 11/23/17 12:30 11/23/17 12:30 11/23/17 12:30 General appearance: Present: A&O X 2, mild distress - Head Head exam: Present: atraumatic, normocephalic - Eye Eye exam: Present: PERRL, conjuntiva pink, sclera anicteric Pupils: Present: PERRL - Neck Neck exam general surgery: Present: supple, trachea midline. Absent: lymphadenopathy - Respiratory Respiratory exam: Present: CTAB. Absent: accessory muscle use, rales, rhonchi, wheezes - Cardiovascular Cardiovascular exam: Present: RRR, +S1, +S2. Absent: diastolic murmur, gallop, rubs, systolic murmur - GI/Abdominal GI/Abdominal exam: Present: normal bowel sounds, soft, no peritoneal signs. Absent: distended, tenderness - Extremities Exam Extremities exam: Present: warm, radial pulses palpable and symmetrical. Absent : calf tenderness, cyanotic, pedal edema - Neurological Exam Neurological exam: Present: CN II-XII intact, oriented X3, no focal deficits. Absent: pronater drift, facial droop, speech deficit - Skin Skin exam: Present: dry, intact Internal Medicine: Result - Labs CBC & Chem 7: 11/23/17 03:07 11/23/17 04:15 Labs: Short CBC 11/23/17 Range/Units 03:07 WBC 7.3 (4.3-11.1) K/mcL Hgb 9.7 L (11.5-15.4) g/dL Hct 29.9 L (35.3-44.9) % Plt Count 241 (140-400) K/mcL Neutrophils # 5.2 (1.6-8.9) K/mcL BMP 11/23/17 04:15 Sodium 134 L Potassium 4.5 Chloride 96 L Carbon Dioxide 31 H BUN 36 H Creatinine 1.84 H Glucose 203 H Calcium 7.8 L - ABG Interpretation ABG results: PT/INR, D-dimer PT 11.3 Seconds (9.4-12.1) 11/22/17 06:45 - VTE Documentation of Mechanical Device: Intermittent pneumatic compression device Consult Discharge Plan - Plan Referrals: Carie,Heath, MD [Primary Care Provider] -
[2017-11-23] MEDS: (Bimatoprost [Lumigan] 1 DROP) OP SCH (16:26)
[2017-11-24] MEDS: Ipratropium/Albuterol Neb 3 ML IH SCH ×12 (00:31→19:54)
[2017-11-24 04:51] LABS: Basophils % 0.2 %; Eosinophils # 0.1 K/mcL (0.0-0.6); Hematocrit 29.6 % (35.3-44.9); Hemoglobin 9.3 g/dL (11.5-15.4); Immature Granulocytes % 0.5 % (0-4); Lymphocytes # 1.7 K/mcL (0.6-4.6); Lymphocytes % 28.4 %; Mean Corpuscular HGB Conc 31.4 g/dL (31.6-35.5); Mean Corpuscular Hemoglobin 29.2 pg (28.0-33.3); Mean Corpuscular Volume 92.8 fL (83.0-100.0); Mean Platelet Volume 9.1 fL (9.4-12.4); Monocytes # 0.4 K/mcL (0.0-1.3); Monocytes % 6.1 %; Neutrophils # 3.9 K/mcL (1.6-8.9); Platelet Count 240 K/mcL (140-400); Red Blood Count 3.19 M/mcL (3.82-4.97); Red Cell Distribution Width 17.3 % (11.5-14.5); Segmented Neutrophils % 63.8 %
[2017-11-24 05:11] LABS: Calcium 7.5 mg/dL (8.6-10.3); Potassium 3.9 mEq/L (3.5-5.1)
[2017-11-24] MEDS: *HR* Enoxaparin 30 MG/0.3 ML SYRINGE SQ SCH (06:16)
[2017-11-24] MEDS: Budesonide/Formoterol 80/4.5 MDI IH SCH ×2 (07:43→19:54)
[2017-11-24] MEDS ORDERED: Levofloxacin 750 MG/150 ML 750 MG/150 ML BAG IVPB SCH (09:00)
[2017-11-24] MEDS: Insulin LISPRO 300 UNITS/3 ML VIAL SQ SCH ×7 (09:41→20:08)
[2017-11-24] MEDS: amLODIPine 5 MG TABLET PO SCH (09:42)
[2017-11-24] MEDS: cloNIDine HCl 0.1 MG TABLET PO SCH ×3 (09:42→20:08)
[2017-11-24] MEDS: Metoprolol 100 MG TABLET PO SCH ×2 (09:42→20:09)
[2017-11-24] MEDS: Isosorbide MONOnitrate (24 HR) 60 MG TAB.ER.24H PO SCH (09:42)
[2017-11-24] MEDS: Gabapentin 100 MG CAPSULE PO SCH ×3 (09:42→20:08)
[2017-11-24] MEDS: Aspirin 81 MG TAB.CHEW PO SCH (09:42)
[2017-11-24] MEDS: hydrALAZINE 25 MG TABLET PO SCH ×3 (09:42→23:22)
--- NOTE | 2017-11-24 10:48 | Internal Med Progress Note ---
Date of Encounter: 11/24/17 Time of Encounter: 10:45 - Assessment and plan (1) Metabolic encephalopathy Current Visit: Yes Status: Acute Assessment and plan: 1 likely secondary to pneumonia as well as hypoglycemia. Presently alert and appropriate is on fall precautions (2) Pneumonia Current Visit: Yes Status: Acute Assessment and plan: We will continue with IV Levaquin-Legionella, Streptococcus negative with cultures negative Oxygen 2 L nasal cannula [id number] saturations at baseline As well as bronchodilators Qualifiers: Pneumonia type: due to unspecified organism Laterality: right Lung location: middle lobe of lung Qualified Code(s): J18.1 - Lobar pneumonia, unspecified organism (3) Type 2 diabetes mellitus, with long-term current use of insulin Current Visit: Yes Status: Acute Assessment and plan: 1 patient had hypoglycemic episode on presentation we will hold basal insulin for now continue with sliding scale insulin and Accu-Cheks before meals at bedtime-continue to monitor Diabetic diet Qualifiers: Diabetes mellitus complication status: with kidney complications Diabetes mellitus complication detail: with chronic kidney disease Chronic kidney disease stage: stage 3 (moderate) Qualified Code(s): E11.22 - Type 2 diabetes mellitus with diabetic chronic kidney disease; N18.3 - Chronic kidney disease, stage 3 (moderate); N18.3 - Chronic kidney disease, stage 3 (moderate); Z79.4 - terminal operations manager (current) use of insulin; Z79.4 - skilled nursing (current) use of insulin; Z79.4 - skilled nursing (current) use of insulin; Z79.4 - skilled nursing (current) use of insulin (4) COPD (chronic obstructive pulmonary disease) Current Visit: No Status: Acute Assessment and plan: 1 . To be stable at this time we will continue to monitor Continue with oxygen and bronchodilators Qualifiers: COPD type: unspecified COPD Qualified Code(s): J44.9 - Chronic obstructive pulmonary disease, unspecified (5) Stage III chronic kidney disease Current Visit: No Status: Chronic Assessment and plan: 1 presently appears to be stable at this time creatinine 1.54. Appears baseline is 1.5-2 Continue to monitor creatinine Avoid nephrotoxins Monitor intake and output daily weights Renal dose antibiotics (6) DVT prophylaxis Current Visit: Yes Status: Acute Assessment and plan: lovenox per renal dose - Subjective Interval history: Patient seen and examined at bedside ,sitting up in chair deneis any SOB or chest pain. Alert,appropiate at this time good appetite Ambulated per PT tolerating well. HX: Past medical history of hypertension COPD CAD diabetes more than BC hyperlipidemia chronic renal insufficiency. Patient resides with son awakened severely confused her blood sugar was 64 she was given IV dextrose , blood sugar improved chest x-ray did show middle lobe infiltrates she was given IV fluids and IV antibiotics, return to home oxygen saturation-on 2 L nasal cannula normally at home she was evaluated by PT OT recommending home health.- Patient refusing home health-was going to discharge today however family requesting to be discharged in the morning - Constitutional Vitals: Temp Pulse Resp BP Pulse Ox 97.8 F 69 16 137/74 98 11/24/17 06:59 11/24/17 06:59 11/24/17 07:44 11/24/17 06:59 11/24/17 07:44 General appearance: Present: A&O X 2, mild distress - Head Head exam: Present: atraumatic, normocephalic - Eye Eye exam: Present: PERRL, conjuntiva pink, sclera anicteric Pupils: Present: PERRL - Neck Neck exam general surgery: Present: supple, trachea midline. Absent: lymphadenopathy - Respiratory Respiratory exam: Present: rales. Absent: accessory muscle use, rhonchi, wheezes - Cardiovascular Cardiovascular exam: Present: RRR, +S1, +S2. Absent: diastolic murmur, gallop, rubs, systolic murmur - GI/Abdominal GI/Abdominal exam: Present: normal bowel sounds, soft, no peritoneal signs. Absent: distended, tenderness - Extremities Exam Extremities exam: Present: warm, radial pulses palpable and symmetrical. Absent : calf tenderness, cyanotic, pedal edema - Neurological Exam Neurological exam: Present: CN II-XII intact, oriented X3, no focal deficits. Absent: pronater drift, facial droop, speech deficit - Skin Skin exam: Present: dry, intact Internal Medicine: Result - Labs CBC & Chem 7: 11/24/17 04:30 11/24/17 04:30 Labs: Short CBC 11/24/17 Range/Units 04:30 WBC 6.0 (4.3-11.1) K/mcL Hgb 9.3 L (11.5-15.4) g/dL Hct 29.6 L (35.3-44.9) % Plt Count 240 (140-400) K/mcL Neutrophils # 3.9 (1.6-8.9) K/mcL BMP 11/24/17 04:30 Sodium 139 Potassium 3.9 Chloride 102 Carbon Dioxide 29 BUN 33 H Creatinine 1.54 H Glucose 176 H Calcium 7.5 L - ABG Interpretation ABG results: PT/INR, D-dimer PT 11.3 Seconds (9.4-12.1) 11/22/17 06:45 - VTE Documentation of Mechanical Device: Intermittent pneumatic compression device Consult Discharge Plan - Plan Referrals: Heath Darnell MD [Primary Care Provider] -
[2017-11-24] MEDS ORDERED: Latanoprost 2.5 ML BOTTLE BOTH EYES SCH (18:00)
[2017-11-25] MEDS: Ipratropium/Albuterol Neb 3 ML IH SCH ×8 (01:15→11:09)
[2017-11-25] MEDS: *HR* Enoxaparin 30 MG/0.3 ML SYRINGE SQ SCH (05:51)
[2017-11-25 06:45] VITALS: BP 135/80
[2017-11-25] MEDS: Budesonide/Formoterol 80/4.5 MDI IH SCH (07:54)
[2017-11-25] MEDS: Insulin LISPRO 300 UNITS/3 ML VIAL SQ SCH ×4 (08:39→12:19)
[2017-11-25] MEDS: amLODIPine 5 MG TABLET PO SCH (08:40)
[2017-11-25] MEDS: Isosorbide MONOnitrate (24 HR) 60 MG TAB.ER.24H PO SCH (08:40)
[2017-11-25] MEDS: hydrALAZINE 25 MG TABLET PO SCH (08:40)
[2017-11-25] MEDS: cloNIDine HCl 0.1 MG TABLET PO SCH (08:40)
[2017-11-25] MEDS: Aspirin 81 MG TAB.CHEW PO SCH (08:40)
[2017-11-25] MEDS: Metoprolol 100 MG TABLET PO SCH (08:40)
[2017-11-25] MEDS: Gabapentin 100 MG CAPSULE PO SCH (08:40)
--- NOTE | 2017-11-25 12:28 | Discharge Summary ---
- NOTES TO OUTPATIENT PROVIDER Notes to Outpatient Provider: Hgb A1c 6.0%; insulin regimen adjusted Orders not resulted at time of discharge: Pending orders 11/22/17 14:49 Procalcitonin Stat Date of Encounter: 11/25/17 Time of Encounter: 11:57 - Discharge Diagnosis (1) Hypoglycemia associated with diabetes Priority: Primary Status: Acute Comments: hx diabetes. Hgb A1c 6.0%; on U-500 insulin and tradjenta. Was found confused at home with blood sugar was in the 60s. Blood sugar improved with IV dextrose and orange juice. Discussed case with brand designer Amanda Marin and will decrease U-500 60 units twice a day and patient has follow-up with endocrine on 11/28/17. (2) Pneumonia Priority: Primary Status: Acute Comments: CXR with right middle lobe airspace disease concerning for pneumonia. Rapid flu swab negative. Urinary antigens negative. Continue Levaquin (renally dosed ). Recommend follow-up with PCP within 1-2 weeks. Qualifiers: Pneumonia type: due to unspecified organism Laterality: right Lung location: middle lobe of lung Qualified Code(s): J18.1 - Lobar pneumonia, unspecified organism (3) Chronic kidney disease Priority: Secondary Status: Chronic Comments: per hx. renal function at baseline. Qualifiers: Chronic kidney disease stage: stage 3 (moderate) Qualified Code(s): N18.3 - Chronic kidney disease, stage 3 (moderate) (4) COPD (chronic obstructive pulmonary disease) Priority: Secondary Status: Chronic Comments: per hx. with chronic respiratory failure; on O2 at home. No evidence of exacerbation on exam. Continue home inhalers. Qualifiers: COPD type: unspecified COPD Qualified Code(s): J44.9 - Chronic obstructive pulmonary disease, unspecified (5) CAD (coronary artery disease) Priority: Secondary Status: Chronic Comments: per hx. Asymptomatic. Denied CP. Continue home ASA, plavix, BB, statin, nitrate. Qualifiers: Coronary Disease-Associated Artery/Lesion type: [place] artery [place] vs. transplanted heart: [place] heart Associated angina: without angina Qualified Code(s): I25.10 - Atherosclerotic heart disease of [place] coronary artery without angina pectoris (6) Morbid obesity Priority: Secondary Status: Chronic Comments: BMI 38. Lifestyle modifications encouraged. Hospital course: Ms. Hall is a 77 year old female with past medical history CAD, COPD, diabetes and morbid obesity who presented to [facility] on after being found confused and with a low blood sugar at home. Her mentation and blood sugar improved with orange juice and IV dextrose. She was incidentally found to have pneumonia and was treated with IV Levaquin. She was discharged home in stable condition; evaluated by PT/OT who recommended home health care however patient was refusing. Patient lives with 2 over children and has 24-hour care. Case discussed with brand designer and insulin regimen changed. See assessment and plan for further details. Discharge discussed with: patient, family - Time Spent with Patient Total time spent providing and/or coordinating discharge services: Less than 30 minutes - Discharge Medications Prescriptions: levoFLOXacin [Levaquin] 750 mg PO DAILY #6 tablet Home Medications: Aspirin 81 mg PO DAILY tab.chew 05/15/15 [Rx] Clopidogrel [Plavix] 75 mg PO DAILY tablet 05/15/15 [Rx] Allopurinol 100 mg PO DAILY 08/08/16 [History] Amlodipine Besylate 10 mg PO DAILY 08/08/16 [History] Atorvastatin [Lipitor] 40 mg PO HS 08/08/16 [History] Bimatoprost [Lumigan] 1 drop OP QPM 08/08/16 [History] Calcitriol [Rocaltrol] 0.25 mcg PO DAILY 08/08/16 [History] Cyclobenzaprine [Flexeril] 10 mg PO HS 08/08/16 [History] Fluticasone/Salmeterol [Advair 250-50 Diskus] 1 puff IH BID 08/08/16 [History] Furosemide [Lasix] 80 mg PO BID 08/08/16 [History] Gabapentin [Neurontin] 100 mg PO TID 08/08/16 [History] Hydralazine HCl 100 mg PO TID 08/08/16 [History] Linagliptin [Tradjenta] 5 mg PO DAILY 08/08/16 [History] Metoprolol [Lopressor] 100 mg PO BID 08/08/16 [History] Omeprazole [PriLOSEC] 20 mg PO BID 08/08/16 [History] Oxygen 2 l NS AD 08/08/16 [History] cloNIDine HCl [Clonidine HCl] 0.3 mg PO TID 08/08/16 [History] Ipratropium/Albuterol Neb [Duoneb] 3 ml IH Q4HR #30 vial.neb 11/22/16 [Rx] Potassium Chloride [K-Tab ER] 20 meq PO QID 06/17/17 [History] Isosorbide MONOnitrate (24 HR) [Imdur] 60 mg PO DAILY 11/22/17 [History] Levothyroxine [Synthroid] 150 mcg PO QAM 11/22/17 [History] Insulin Regular, Human [Humulin R U-500 Kwikpen] 60 unit SQ HS #0 11/25/17 [Rx] Insulin Regular, Human [Humulin R U-500 Kwikpen] 60 unit SQ QAM #0 11/25/17 [Rx] levoFLOXacin [Levaquin] 750 mg PO DAILY #6 tablet 11/25/17 [Rx] Allergies/Adverse Reactions: 3 Allergy/AdvReac Type Severity Reaction Status Date / Time carbamazepine Allergy Hives Verified 06/17/17 09:27 promethazine Allergy See Verified 06/17/17 09:27 Comments Date of admission: 11/22/17 10:32 Primary care physician: Heath Darnell MD Discharging clinician: Yoko Riggins Anticipated date of discharge: 11/25/17 - Constitutional Vitals: Temp Pulse Resp BP Pulse Ox 98.8 F 69 15 135/80 95 11/25/17 06:43 11/25/17 06:43 11/25/17 07:55 11/25/17 06:43 11/25/17 07:55 General appearance: Present: A&O X 3, morbidly obese - Head Head exam: Present: atraumatic, normocephalic - Eye Eye exam: Present: PERRL, conjuntiva pink, sclera anicteric Pupils: Present: PERRL - Neck Neck exam general surgery: Present: supple, trachea midline. Absent: lymphadenopathy - Respiratory Respiratory exam: Present: CTAB. Absent: accessory muscle use, rales, rhonchi, wheezes - Cardiovascular Cardiovascular exam: Present: RRR, +S1, +S2. Absent: diastolic murmur, gallop, rubs, systolic murmur - GI/Abdominal GI/Abdominal exam: Present: normal bowel sounds, soft, no peritoneal signs. Absent: distended, tenderness - Extremities Exam Extremities exam: Present: warm, radial pulses palpable and symmetrical. Absent : calf tenderness, cyanotic, pedal edema - Neurological Exam Neurological exam: Present: CN II-XII intact, oriented X3, no focal deficits. Absent: pronater drift, facial droop, speech deficit - Skin Skin exam: Present: dry, intact - Patient Status Disposition: Home, Self-Care Condition: Fair Functional capacity at discharge: uses cane/walker Overall status at discharge: patient is progressing back to baseline - Discharge Instructions Instructions: Diabetic Hypoglycemia (DC), Insulin Human Regular (Injection) Follow Up With: Heath Darnell MD [Primary Care Provider] - 12/02/17 2:15 pm Amanda Marin CNP [Advanced Practice Nurse] - 11/28/17 2:00 pm - Diet and Activity Activity: increase activity as tolerated Diet: diabetic diet - VTE Documentation of Mechanical Device: Intermittent pneumatic compression device
--- NOTE | 2017-11-28 07:55 | Electrocardiograph Report ---
[place] [id number] Test Date: 2017-11-22 Pat Name: [place] [facility] Department: 104 Room: 3B Gender: F Oil Exploration Engineer: : [id number] Requested By: Balaji Escamilla Order Number: [id number] Reading MD: Lyle Greene DO Measurements Intervals [place] Rate: 67 P: 89 WI: 244 QRS: 42 QRSD: 100 T: 60 QT: 419 QTc: 434 Interpretive Statements SINUS RHYTHM WITH FIRST DEGREE AV BLOCK NONSPECIFIC T-WAVE ABNORMALITY Electronically Signed On 11-28-2017 7:53:52 EST by Lyle Greene DO
== END 2017-11-25 14:15 | disposition home or self-care (01) | DRG 193 ==
LOC: 3BNU 05:44 → EMEROO 05:44 → 3BNU 09:26
PROVIDERS: ADMIT Internal Medicine; ATTEND Registered Nurse

== ENCOUNTER 2018-07-06 17:08 | Observation (INO) ==
[2018-07-06] MEDS ORDERED: Furosemide 40 MG/4 ML VIAL IVP ONE (17:21)
--- NOTE | 2018-07-06 17:26 | Emergency Department Note ---
Disposition Clinical Impression: CHF (congestive heart failure) Qualifiers: Heart failure type: unspecified Heart failure chronicity: acute on chronic Qualified Code(s): I50.9 - Heart failure, unspecified Disposition: Admitted As Inpatient Condition: Fair Chest Pain HPI - General Chief Complaint: ED Chest Pain Stated Complaint: Chest pain sent UC Time Seen by Provider: 07/06/18 17:15 Source: patient, family Mode of arrival: wheelchair Limitations: no limitations Vital Signs Reviewed: Yes Nursing Notes Reviewed: Yes - History of Present Illness HPI Narrative: Patient presenting to the ED as a transfer from urgent care for chest pain and shortness of breath. Patient has history of congestive heart failure and has been taking her Lasix. However, she has continued to get short of breath. States that the worst of it started yesterday and has continued to worsen. She is unsure if she has had any fever. No worsening cough and usual. Her chest pain is more of a heaviness and is worse when she gets up and walks around. She feels short of breath even at rest. No abdominal pain, nausea, vomiting, diarrhea or rash. Severity scale (1-10): 7 - Related Data Home Medications Medication Instructions Recorded Confirmed Amlodipine Besylate 10 mg PO DAILY 08/08/16 07/06/18 Bimatoprost [Lumigan] 1 drop OP QPM 08/08/16 07/06/18 Cyclobenzaprine [Flexeril] 10 mg PO HS 08/08/16 07/06/18 Fluticasone/Salmeterol [Advair 1 puff IH BID 08/08/16 07/06/18 250-50 Diskus] Hydralazine HCl 100 mg PO TID 08/08/16 07/06/18 Linagliptin [Tradjenta] 5 mg PO DAILY 08/08/16 07/06/18 Metoprolol [Lopressor] 100 mg PO BID 08/08/16 07/06/18 Oxygen 2 l NS AD 08/08/16 07/06/18 cloNIDine HCl [Clonidine HCl] 0.3 mg PO TID 08/08/16 07/06/18 Potassium Chloride [K-Tab ER] 20 meq PO QID 06/17/17 07/06/18 Isosorbide MONOnitrate (24 HR) 60 mg PO DAILY 11/22/17 07/06/18 [Imdur] Albuterol Sulfate [Proair 90 mcg IH HS 07/06/18 07/06/18 Respiclick] Allopurinol [Zyloprim 100 MG] 100 mg PO DAILY 07/06/18 07/06/18 Calcitriol [Rocaltrol] 0.25 mcg PO DAILY 07/06/18 07/06/18 Clopidogrel [Plavix] 75 mg PO DAILY 07/06/18 07/06/18 Furosemide [Lasix] 80 mg PO BID 07/06/18 07/06/18 Gabapentin [Neurontin] 100 mg PO QID 07/06/18 07/06/18 Insulin Glargine,Hum.rec.anlog 70 unit SQ HS 07/06/18 07/06/18 [Basaglar Kwikpen U-100] Insulin LISPRO [Humalog] 0 unit SQ TIDWM 07/06/18 07/06/18 Levothyroxine Sodium [Levoxyl] 150 mcg PO QAM 07/06/18 07/06/18 Losartan [Cozaar] 25 mg PO DAILY 07/06/18 07/06/18 Omeprazole [PriLOSEC] 20 mg PO BID 07/06/18 07/06/18 Polyethylene Glycol 3350 [MiraLAX] 17 gm PO DAILY 07/06/18 07/06/18 Rosuvastatin Calcium [Rosuvastatin 40 mg PO DAILY 07/06/18 07/06/18 Calcium] Previous Rx's Medication Instructions Recorded Aspirin 81 mg PO DAILY tab.chew 05/15/15 Ipratropium/Albuterol Neb [Duoneb] 3 ml IH Q4HR #30 vial.neb 11/22/16 Allergies Allergy/AdvReac Type Severity Reaction Status Date / Time carbamazepine Allergy Hives Verified 06/17/17 09:27 promethazine Allergy See Verified 06/17/17 09:27 Comments Review of Systems: As reviewed in the HPI. All other systems reviewed are negative or normal. Chest Pain PMH - Past Medical History Medical history: Reports: CHF, COPD, coronary artery disease, diabetes, GERD, hyperlipidemia, hypertension, renal disease Surgical history: Reports: breast surgery, cataract, hysterectomy, thyroidectomy , other Psychiatric history: Reports: anxiety CONTINUING EDUCATION DEAN history: Reports: no CONTINUING EDUCATION DEAN history - Social History Smoking Status: Never smoker Alcohol use: Reports: none Drug use: Reports: none Physical Exam CONSTITUTIONAL: [Chronically ill appearing, alert and in no acute distress] EYES: [EOMI, clear conjunctiva, PERRLA] HENT: [Normocephalic, atraumatic, moist mucus membranes, normal oropharynx] NECK: [normal inspection, full ROM, trachea midline, no obvious swelling] PULMONARY: [normal chest rise and fall, no respiratory distress or stridor, no wheezes, no rhonchi, positive for Rales bilateral bases, decreased breath sounds bilateral bases, poor inspiration throughout CARDIOVASCULAR: [regular rate, regular rhythm, normal heart sounds, no murmurs, distal extremities are warm and well perfused] GASTROINSTESTINAL: [soft, non-tender, non-rigid, non-distended, no guarding, no rebound, normal bowel sounds] GENITOURINARY/RECTAL: [deferred] NEUROLOGIC: [Alert, oriented x3, normal speech, moves all extremities] EXTREMITIES: [Normal inspection, full ROM, no tenderness, 2+ pedal edema, normal capillary refill] MUSCULOSKELETAL: [no gross deformities, atraumatic] SKIN: [No cyanosis, no diaphoresis, normal color, warm, no rash] PSYCHIATRIC: [normal mood and affect] - General Limitations: no limitations Course Course Narrative: Patient presenting with CHF exacerbation. We will give her dose Lasix. Chest x -ray, EKG, labs and admit. - Reevaluation(s) Reevaluation #1: Patient admitted to the hospital service. Vital Signs Temperature 98.5 F 07/06/18 17:11 Pulse Rate 67 07/06/18 17:11 Respiratory Rate 18 07/06/18 17:11 Blood Pressure 119/65 07/06/18 17:11 O2 Sat by Pulse Oximetry 96 07/06/18 17:11 Temperature 98.5 F 07/06/18 17:18 Pulse Rate 61 07/06/18 19:40 Respiratory Rate 20 07/06/18 19:40 Blood Pressure 113/59 07/06/18 19:40 O2 Sat by Pulse Oximetry 99 07/06/18 19:40 Oxygen Delivery Oxygen Delivery Nasal Cannula Chest Pain - Medical Records Medical records reviewed: Yes I reviewed the patient's medical records. - Lab Data Lab results reviewed: Yes I reviewed the patient's lab results. Result diagrams: 07/06/18 17:24 07/06/18 17:24 Lab Results 07/06/18 07/06/18 07/06/18 Range/Units 17:24 17:24 17:24 WBC 5.5 (4.3-11.1) K/mcL RBC 3.28 L (3.82-4.97) M/mcL Hgb 9.3 L (11.5-15.4) g/dL Hct 29.8 L (35.3-44.9) % MCV 90.9 (83.0-100.0) fL MCH 28.4 (28.0-33.3) pg MCHC 31.2 L (31.6-35.5) g/dL RDW 18.2 H (11.5-14.5) % Plt Count 208 (140-400) K/mcL MPV 9.0 L (9.4-12.4) fL Immature Gran % 0.4 (0-4) % Seg Neutrophils % 69.2 % Lymphocytes % 22.6 % Monocytes % 4.0 % Eosinophils % 3.6 % Basophils % 0.2 % Neutrophils # 3.8 (1.6-8.9) K/mcL Lymphocytes # 1.3 (0.6-4.6) K/mcL Monocytes # 0.2 (0.0-1.3) K/mcL Eosinophils # 0.2 (0.0-0.6) K/mcL Basophils # 0.0 (0.0-0.2) K/mcL Sodium 138 (136-145) mEq/L Potassium 4.5 (3.5-5.1) mEq/L Chloride 98 (98-107) mEq/L Carbon Dioxide 30 H (23-29) mEq/L BUN 43 H (8-23) mg/dL Creatinine 2.15 H (0.60-1.20) mg/dL Est GFR ( Amer) 27 L (> 60) Est GFR (Non-Af Amer) 22 L (> 60) BUN/Creatinine Ratio 20 (6-26) Glucose 129 H (70-105) mg/dL Calculated Osmolality 299 (280-300) Lactic Acid 1.3 (0.5-2.2) mmol/L Calcium 10.7 H (8.6-10.3) mg/dL Troponin I < 0.03 (< 0.04) ng/mL B-Natriuretic Peptide (Less than 100) pg/mL Urine Color (Yellow) Urine Clarity (Clear) Urine pH (5.0-8.0) pH Units Ur Specific [place] (1.010-1.025) Urine Protein (Neg-Trace) mg/dL Urine Glucose (UA) (Normal) mg/dL Urine Ketones (Negative) mg/dL Urine Blood (Negative) Urine Nitrite (Negative) Urine Bilirubin (Negative) Urine Urobilinogen (Normal) mg/dL Ur Leukocyte Esterase (Negative) Ur Culture Indicated? (NO) 07/06/18 07/06/18 Range/Units 17:24 18:16 WBC (4.3-11.1) K/mcL RBC (3.82-4.97) M/mcL Hgb (11.5-15.4) g/dL Hct (35.3-44.9) % MCV (83.0-100.0) fL MCH (28.0-33.3) pg MCHC (31.6-35.5) g/dL RDW (11.5-14.5) % Plt Count (140-400) K/mcL MPV (9.4-12.4) fL Immature Gran % (0-4) % Seg Neutrophils % % Lymphocytes % % Monocytes % % Eosinophils % % Basophils % % Neutrophils # (1.6-8.9) K/mcL Lymphocytes # (0.6-4.6) K/mcL Monocytes # (0.0-1.3) K/mcL Eosinophils # (0.0-0.6) K/mcL Basophils # (0.0-0.2) K/mcL Sodium (136-145) mEq/L Potassium (3.5-5.1) mEq/L Chloride (98-107) mEq/L Carbon Dioxide (23-29) mEq/L BUN (8-23) mg/dL Creatinine (0.60-1.20) mg/dL Est GFR ( Amer) (> 60) Est GFR (Non-Af Amer) (> 60) BUN/Creatinine Ratio (6-26) Glucose (70-105) mg/dL Calculated Osmolality (280-300) Lactic Acid (0.5-2.2) mmol/L Calcium (8.6-10.3) mg/dL Troponin I (< 0.04) ng/mL B-Natriuretic Peptide 64 (Less than 100) pg/mL Urine Color Yellow (Yellow) Urine Clarity Clear (Clear) Urine pH 7.0 (5.0-8.0) pH Units Ur Specific [place] 1.015 (1.010-1.025) Urine Protein Negative (Neg-Trace) mg/dL Urine Glucose (UA) Normal (Normal) mg/dL Urine Ketones Negative (Negative) mg/dL Urine Blood Negative (Negative) Urine Nitrite Negative (Negative) Urine Bilirubin Negative (Negative) Urine Urobilinogen Normal (Normal) mg/dL Ur Leukocyte Esterase Negative (Negative) Ur Culture Indicated? NO (NO) - Radiology Data Radiology results reviewed: Yes I reviewed the patient's radiology results. - EKG Data EKG attestation: Yes I reviewed and interpreted this EKG. EKG results narrative: Sinus rhythm, normal axis, normal intervals, no acute ischemic changes
[2018-07-06 17:58] LABS: Basophils % 0.2 %; Eosinophils # 0.2 K/mcL (0.0-0.6); Eosinophils % 3.6 %; Hematocrit 29.8 % (35.3-44.9); Hemoglobin 9.3 g/dL (11.5-15.4); Immature Granulocytes % 0.4 % (0-4); Lymphocytes # 1.3 K/mcL (0.6-4.6); Lymphocytes % 22.6 %; Mean Corpuscular HGB Conc 31.2 g/dL (31.6-35.5); Mean Corpuscular Hemoglobin 28.4 pg (28.0-33.3); Mean Corpuscular Volume 90.9 fL (83.0-100.0); Monocytes # 0.2 K/mcL (0.0-1.3); Neutrophils # 3.8 K/mcL (1.6-8.9); Platelet Count 208 K/mcL (140-400); Red Blood Count 3.28 M/mcL (3.82-4.97); Red Cell Distribution Width 18.2 % (11.5-14.5); Segmented Neutrophils % 69.2 %
[2018-07-06 18:24] LABS: Troponin I < 0.03 ng/mL (< 0.04)
[2018-07-06] MEDS ORDERED: Nitroglycerin 0.4 MG TAB.SUBL SL STA (18:26)
[2018-07-06 18:32] LABS: BUN/Creatinine Ratio 20 (6-26); Blood Urea Nitrogen 43 mg/dL (8-23); Calcium 10.7 mg/dL (8.6-10.3); Carbon Dioxide 30 mEq/L (23-29); Chloride 98 mEq/L (98-107); Glucose 129 mg/dL (70-105); Osmolality,Calculated 299 (280-300); Potassium 4.5 mEq/L (3.5-5.1); Sodium 138 mEq/L (136-145); eGFR For Non-African Americans 22 (> 60)
[2018-07-06 18:35] LABS: Bilirubin,Urine Negative (Negative); Blood,Urine Negative (Negative); Clarity,Urine Clear (Clear); Color,Urine Yellow (Yellow); Glucose,Urine (UA) Normal (Normal); Ketones,Urine Negative (Negative); Leukocyte Esterase,Urine Negative (Negative); Nitrite,Urine Negative (Negative); Protein,Urine Negative (Neg-Trace); Specific Gravity,Urine 1.015 (1.010-1.025); Urobilinogen,Urine Normal (Normal)
--- NOTE | 2018-07-06 18:45 | Emergency Department Note ---
Disposition Clinical Impression: Chest pain, Acute decompensated heart failure Disposition: Admitted As Inpatient Condition: Fair Time of Disposition: 20:35 General Adult HPI - General Chief complaint: ED Chest Pain Stated complaint: Chest pain sent UC Time Seen by Provider: 07/06/18 17:15 Source: patient, family Mode of arrival: wheelchair Limitations: no limitations - History of Present Illness Pain Scale: 6 - Related Data Home Medications Medication Instructions Recorded Confirmed Amlodipine Besylate 10 mg PO DAILY 08/08/16 07/06/18 Bimatoprost [Lumigan] 1 drop OP QPM 08/08/16 07/06/18 Cyclobenzaprine [Flexeril] 10 mg PO HS 08/08/16 07/06/18 Fluticasone/Salmeterol [Advair 1 puff IH BID 08/08/16 07/06/18 250-50 Diskus] Hydralazine HCl 100 mg PO TID 08/08/16 07/06/18 Linagliptin [Tradjenta] 5 mg PO DAILY 08/08/16 07/06/18 Metoprolol [Lopressor] 100 mg PO BID 08/08/16 07/06/18 Oxygen 2 l NS AD 08/08/16 07/06/18 cloNIDine HCl [Clonidine HCl] 0.3 mg PO TID 08/08/16 07/06/18 Potassium Chloride [K-Tab ER] 20 meq PO QID 06/17/17 07/06/18 Isosorbide MONOnitrate (24 HR) 60 mg PO DAILY 11/22/17 07/06/18 [Imdur] Albuterol Sulfate [Proair 90 mcg IH 07/06/18 07/06/18 Respiclick] Allopurinol [Zyloprim 100 MG] 100 mg PO DAILY 07/06/18 07/06/18 Calcitriol [Rocaltrol] 0.25 mcg PO DAILY 07/06/18 07/06/18 Clopidogrel [Plavix] 75 mg PO DAILY 07/06/18 07/06/18 Furosemide [Lasix] 80 mg PO BID 07/06/18 07/06/18 Gabapentin [Neurontin] 100 mg PO QID 07/06/18 07/06/18 Insulin Glargine,Hum.rec.anlog 70 unit SQ 07/06/18 07/06/18 [Randall Morales U-100] Insulin LISPRO [Humalog] 0 unit SQ TIDWM 07/06/18 07/06/18 Levothyroxine Sodium [Levoxyl] 150 mcg PO QAM 07/06/18 07/06/18 Losartan [Cozaar] 25 mg PO DAILY 07/06/18 07/06/18 Omeprazole [PriLOSEC] 20 mg PO BID 07/06/18 07/06/18 Polyethylene Glycol 3350 [MiraLAX] 17 gm PO DAILY 07/06/18 07/06/18 Rosuvastatin Calcium [Rosuvastatin 40 mg PO DAILY 07/06/18 07/06/18 Calcium] Previous Rx's Medication Instructions Recorded Aspirin 81 mg PO DAILY tab.chew 05/15/15 Ipratropium/Albuterol Neb [Duoneb] 3 ml IH Q4HR #30 vial.neb 11/22/16 Allergies Allergy/AdvReac Type Severity Reaction Status Date / Time carbamazepine Allergy Hives Verified 06/17/17 09:27 promethazine Allergy See Verified 06/17/17 09:27 Comments Past Medical History - Past Medical History Medical history: Reports: CHF, COPD, coronary artery disease, diabetes, GERD, hyperlipidemia, hypertension, renal disease Surgical history: Reports: breast surgery, cataract, hysterectomy, thyroidectomy , other Psychiatric history: Reports: anxiety 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 - Social History Smoking Status: Never smoker Smokeless Tobacco Status: No Alcohol use: Reports: none Drug use: Reports: none Physical Exam - General Limitations: no limitations Course Vital Signs Temperature 98.5 F 07/06/18 17:11 Pulse Rate 67 07/06/18 17:11 Respiratory Rate 18 07/06/18 17:11 Blood Pressure 119/65 07/06/18 17:11 O2 Sat by Pulse Oximetry 96 07/06/18 17:11 Temperature 98.5 F 07/06/18 17:18 Pulse Rate 61 07/06/18 19:40 Respiratory Rate 20 07/06/18 19:40 Blood Pressure 113/59 07/06/18 19:40 O2 Sat by Pulse Oximetry 99 07/06/18 19:40 Oxygen Delivery Oxygen Delivery Nasal Cannula Medical Decision Making - Lab Data Result diagrams: 07/06/18 17:24 07/06/18 17:24 Lab Results 10/10/2307/06/18 07/06/18 Range/Units 17:24 17:24 17:24 WBC 5.5 (4.3-11.1) K/mcL RBC 3.28 L (3.82-4.97) M/mcL Hgb 9.3 L (11.5-15.4) g/dL Hct 29.8 L (35.3-44.9) % MCV 90.9 (83.0-100.0) fL MCH 28.4 (28.0-33.3) pg MCHC 31.2 L (31.6-35.5) g/dL RDW 18.2 H (11.5-14.5) % Plt Count 208 (140-400) K/mcL MPV 9.0 L (9.4-12.4) fL Immature Gran % 0.4 (0-4) % Seg Neutrophils % 69.2 % Lymphocytes % 22.6 % Monocytes % 4.0 % Eosinophils % 3.6 % Basophils % 0.2 % Neutrophils # 3.8 (1.6-8.9) K/mcL Lymphocytes # 1.3 (0.6-4.6) K/mcL Monocytes # 0.2 (0.0-1.3) K/mcL Eosinophils # 0.2 (0.0-0.6) K/mcL Basophils # 0.0 (0.0-0.2) K/mcL Sodium 138 (136-145) mEq/L Potassium 4.5 (3.5-5.1) mEq/L Chloride 98 (98-107) mEq/L Carbon Dioxide 30 H (23-29) mEq/L BUN 43 H (8-23) mg/dL Creatinine 2.15 H (0.60-1.20) mg/dL Est GFR ( Amer) 27 L (> 60) Est GFR (Non-Af Amer) 22 L (> 60) BUN/Creatinine Ratio 20 (6-26) Glucose 129 H (70-105) mg/dL Calculated Osmolality 299 (280-300) Lactic Acid 1.3 (0.5-2.2) mmol/L Calcium 10.7 H (8.6-10.3) mg/dL Troponin I < 0.03 (< 0.04) ng/mL B-Natriuretic Peptide (Less than 100) pg/mL Urine Color (Yellow) Urine Clarity (Clear) Urine pH (5.0-8.0) pH Units Ur Specific [place] (1.010-1.025) Urine Protein (Neg-Trace) mg/dL Urine Glucose (UA) (Normal) mg/dL Urine Ketones (Negative) mg/dL Urine Blood (Negative) Urine Nitrite (Negative) Urine Bilirubin (Negative) Urine Urobilinogen (Normal) mg/dL Ur Leukocyte Esterase (Negative) Ur Culture Indicated? (NO) 07/06/18 07/06/18 Range/Units 17:24 18:16 WBC (4.3-11.1) K/mcL RBC (3.82-4.97) M/mcL Hgb (11.5-15.4) g/dL Hct (35.3-44.9) % MCV (83.0-100.0) fL MCH (28.0-33.3) pg MCHC (31.6-35.5) g/dL RDW (11.5-14.5) % Plt Count (140-400) K/mcL MPV (9.4-12.4) fL Immature Gran % (0-4) % Seg Neutrophils % % Lymphocytes % % Monocytes % % Eosinophils % % Basophils % % Neutrophils # (1.6-8.9) K/mcL Lymphocytes # (0.6-4.6) K/mcL Monocytes # (0.0-1.3) K/mcL Eosinophils # (0.0-0.6) K/mcL Basophils # (0.0-0.2) K/mcL Sodium (136-145) mEq/L Potassium (3.5-5.1) mEq/L Chloride (98-107) mEq/L Carbon Dioxide (23-29) mEq/L BUN (8-23) mg/dL Creatinine (0.60-1.20) mg/dL Est GFR ( Amer) (> 60) Est GFR (Non-Af Amer) (> 60) BUN/Creatinine Ratio (6-26) Glucose (70-105) mg/dL Calculated Osmolality (280-300) Lactic Acid (0.5-2.2) mmol/L Calcium (8.6-10.3) mg/dL Troponin I (< 0.04) ng/mL B-Natriuretic Peptide 64 (Less than 100) pg/mL Urine Color Yellow (Yellow) Urine Clarity Clear (Clear) Urine pH 7.0 (5.0-8.0) pH Units Ur Specific [place] 1.015 (1.010-1.025) Urine Protein Negative (Neg-Trace) mg/dL Urine Glucose (UA) Normal (Normal) mg/dL Urine Ketones Negative (Negative) mg/dL Urine Blood Negative (Negative) Urine Nitrite Negative (Negative) Urine Bilirubin Negative (Negative) Urine Urobilinogen Normal (Normal) mg/dL Ur Leukocyte Esterase Negative (Negative) Ur Culture Indicated? NO (NO) Critical Care Time Critical Care Time: Yes Total Critical Care Time: 30 Attestation: Critical care performed: Time is exclusive of separately billable procedures. Time includes: direct patient care, patient reassessment, coordination of patient care, interpretation of data (laboratory data, radiology data, and respiratory data), review of patient's medical records, medical consultation and documentation of patient care. Procedures included in critical care time: Procedures excluded from critical care time: Attestation Statement - Attestation Attestation: I examined this patient and my medical decision-making was reviewed with the Resident Physician. I agree with the documented findings, disposition and treatment plan as described except to the extent set forth below. Patient presents to the ED with a chief of chest pain. Onset around noon. Shortness of breath. Patient states it hurts to breathe. No fever no cough. She does have some increase in swelling in her legs but symmetric. On examination she is awake and alert no acute distress. She is not hypoxic. She is not tachycardic. Lungs diminished with rales in the bases. She has 3+ pitting edema bilaterally. Plan. Appears consistent with CHF. Patient has had a recent increase in her creatinine. Troponin is negative. Cannot appreciate any ischemia on her EKG. She is admitted to medicine. She is given IV Lasix and nitroglycerin. Troponin negative. Chest x-ray read as possible pneumonia. Patient is not coughing febrile or having a white count. She is not felt to have pneumonia. Admitted to medicine. Chest X-Ray 07/06/18 17:21 IMPRESSION: 1. Mild bilateral lower lobe patchy opacities which could represent atelectasis versus possible bronchopneumonia. 2. No effusion or pneumothorax. D/ / 07/06/2018 18:03:02 Ludwig Moraes MD / marco Interpreting Provider: Ludwig Moraes MD
[2018-07-06] MEDS ORDERED: Dextrose Gel 15 GM/37.5 ML TUBE PO PRN ×2 (19:50)
[2018-07-06] MEDS: Ipratropium/Albuterol Neb 3 ML IH SCH ×2 (20:22→23:22)
--- NOTE | 2018-07-06 21:19 | Internal Med History&Physical ---
<Colton Gibbs - Last Filed: 07/06/18 20:36> Date of Encounter: 07/06/18 Time of Encounter: 20:37 Internal Medicine - H&P: HPI Chief complaint: Chest Pain/ Shortness of Breath Admitted From: Home Plans for Post Hospital Care: Home History of present illness: Ms. Hall is a 78 year old female with a past medical history of congestive heart failure, COPD, CAD, diabetes, GERD, hyperlipidemia, hypertension, chronic kidney disease. She presented with the chief complaint of shortness of breath and chest pain. She states that she always has shortness of breath however this worsened today along with the presentation of chest pain. She states the chest pain is diffuse however worst in the left lower chest. She states that her shortness of breath and chest pain or worse with deep breathing, movement but are still present at rest. She also complains of a new onset cough that is nonproductive. She denies any recent medication changes or travel or trauma. She also denies smoking or alcohol use or recreational drug use. Past Med Surg Social Fam HX - Past Medical History Medical history: CHF, COPD, coronary artery disease, diabetes, GERD, hyperlipidemia, hypertension, renal disease Additional medical history: anemia,sleep apenea,stomach ulcer Psychiatric history: anxiety - Past Surgical History Surgical History: breast surgery, cataract, hysterectomy, thyroidectomy, other Additional surgical history: tubal - Social History Smoking Status: Never smoker Smokeless Tobacco Status: No Alcohol use: none Drug use: none - Family History Mother Family Member Ethnicity: Non- Living Status: Hx Family Neurologic Disorders: Yes (Alzheimers) Brother Family Member Ethnicity: Non- Living Status: Still Living Hx Family Cardiac Disorders: Yes (CABG) Internal Medicine - H&P: Meds Aspirin 81 mg PO DAILY tab.chew 05/15/15 [Rx] Amlodipine Besylate 10 mg PO DAILY 08/08/16 [History] Bimatoprost [Lumigan] 1 drop OP QPM 08/08/16 [History] Cyclobenzaprine [Flexeril] 10 mg PO HS 08/08/16 [History] Fluticasone/Salmeterol [Advair 250-50 Diskus] 1 puff IH BID 08/08/16 [History] Hydralazine HCl 100 mg PO TID 08/08/16 [History] Linagliptin [Tradjenta] 5 mg PO DAILY 08/08/16 [History] Metoprolol [Lopressor] 100 mg PO BID 08/08/16 [History] Oxygen 2 l NS AD 08/08/16 [History] cloNIDine HCl [Clonidine HCl] 0.3 mg PO TID 08/08/16 [History] Ipratropium/Albuterol Neb [Duoneb] 3 ml IH Q4HR #30 vial.neb 11/22/16 [Rx] Potassium Chloride [K-Tab ER] 20 meq PO QID 06/17/17 [History] Isosorbide MONOnitrate (24 HR) [Imdur] 60 mg PO DAILY 11/22/17 [History] Albuterol Sulfate [Proair Respiclick] 90 mcg IH HS 07/06/18 [History] Allopurinol [Zyloprim 100 MG] 100 mg PO DAILY 07/06/18 [History] Calcitriol [Rocaltrol] 0.25 mcg PO DAILY 07/06/18 [History] Clopidogrel [Plavix] 75 mg PO DAILY 07/06/18 [History] Furosemide [Lasix] 80 mg PO BID 07/06/18 [History] Gabapentin [Neurontin] 100 mg PO QID 07/06/18 [History] Insulin Glargine,Hum.rec.anlog [Basaglar Kwikpen U-100] 70 unit SQ HS 07/06/18 [ History] Insulin LISPRO [Humalog] 0 unit SQ TIDWM 07/06/18 [History] Levothyroxine Sodium [Levoxyl] 150 mcg PO QAM 07/06/18 [History] Losartan [Cozaar] 25 mg PO DAILY 07/06/18 [History] Omeprazole [PriLOSEC] 20 mg PO BID 07/06/18 [History] Polyethylene Glycol 3350 [MiraLAX] 17 gm PO DAILY 07/06/18 [History] Rosuvastatin Calcium [Rosuvastatin Calcium] 40 mg PO DAILY 07/06/18 [History] 3 Allergy/AdvReac Type Severity Reaction Status Date / Time carbamazepine Allergy Hives Verified 06/17/17 09:27 promethazine Allergy See Verified 06/17/17 09:27 Comments All Systems PM: A 10-system review of systems was performed and is negative for pertinent findings except as documented above in the HPI. - Constitutional Constitutional: no chills, no excessive sweating, no fatigue, no fever(s) - EENT Eyes: no change in vision - Cardiovascular Cardiovascular ROS IM: chest pain, dyspnea, dyspnea on exertion, edema, orthopnea, no diaphoresis, no irregular heart rhythm, no syncope - Respiratory Respiratory: cough, dyspnea, dyspnea on exertion, pain on inspiration, pain with cough, no hemoptysis, no wheezing, no excessive phlegm production - Gastrointestinal Gastrointestinal: no abdominal pain, no coffee ground emesis, no diarrhea, no vomiting - Genitourinary Genitourinary: no difficulty urinating, no difficulty voiding, no urinary frequency, no urinary hesitancy, no urinary incontinence, no urinary urgency - Musculoskeletal Musculoskeletal ROS IM: no muscle weakness, no numbness, no tingling - Neurological Neurological ROS: no abnormal speech, no confusion, no focal weakness - Constitutional Vitals: Temp Pulse Resp BP Pulse Ox 98.5 F 61 20 113/59 99 07/06/18 17:18 07/06/18 19:40 07/06/18 19:40 07/06/18 19:40 07/06/18 19:40 Exam: Patient no acute distress, alert and oriented 3 Cranial nerves II through XII intact Heart in regular rate and rhythm with 2/6 systolic murmur Lungs demonstrate diffuse scattered rales without wheeze or rhonchi Anterior chest wall diffusely tender to palpation Abdomen obese and soft and nontender with normal bowel sounds present Bilateral lower extremities 2+ pitting edematous Skin warm and dry Internal Med - H&P Results - Labs CBC & Chem 7: 07/06/18 17:24 07/06/18 17:24 - Assessment and plan (1) Chest pain Current Visit: Yes Status: Acute Assessment and plan: Patient presented with chest pain EKG showed normal sinus rhythm Chest Xray showed atelectasis vs infiltrate Troponin < 0.03 Physical exam positive for reproducible chest pain Vitals within normal limits at presentation Differentials include ACS, Costochondritis, Pulmonary Embolism, Pleuritis Plan Repeat troponin Continuous Cardiac Monitoring D-Dimer Limited echocardiogram Qualifiers: Chest pain type: chest pain on breathing Qualified Code(s): R07.1 - Chest pain on breathing; R07.81 - Pleurodynia (2) Shortness of breath Current Visit: Yes Status: Acute Assessment and plan: Patient has chronic shortness of breath with exacerbation Takes 80mg PO Lasix BID at home, states it didn't help Uses 2LO2 morning and night at home Saturating high 90s on 2L at presentation Received 40mg IV LAsix in ED Differentials include Pulmonary Embolism, Pleural Effusion, ACS, Pneumonia Plan Continue supplemental O2 Continue home dose Lasix Levofloxacin 500mg IV Daily Rest of plan as seen above (3) Pneumonia Current Visit: Yes Status: Suspected Assessment and plan: CXR suspicious for right lower lobe infiltrate Patient was not admitted in last 90 days White count and temperature and vitals all within normal limits Patient does admit to non-productive cough Plan Empiric antibiotics Blood cultures x 2 Legionella antigen Streptococcus antigen Qualifiers: Pneumonia type: due to unspecified organism Laterality: right Lung location: lower lobe of lung Qualified Code(s): J18.1 - Lobar pneumonia, unspecified organism (4) Acute on chronic diastolic congestive heart failure Current Visit: Yes Status: Suspected Assessment and plan: Patient with chronic diastolic heart failure with preserved EF Last echo 07/02/18 showed 55-60% EF with diastolic dysfunction and aortic stenosis Takes 80mg BID PO LAsix at home Plan Continue home dose Lasix Strict Is and Os 2L fluid restricted cardiac/diabetic diet (5) COPD (chronic obstructive pulmonary disease) Current Visit: No Status: Chronic Assessment and plan: Not suspicious for COPD exacerbation Plan Continue Inhaled corticosteroid/bronchodilator/nebulizer Continue supplemental O2 Qualifiers: COPD type: unspecified COPD Qualified Code(s): J44.9 - Chronic obstructive pulmonary disease, unspecified (6) Acute on chronic kidney failure Current Visit: Yes Status: Acute Assessment and plan: Patient with CKD Current creatinine 2.15, baseline appears to be approximately 1.5 Creatinine clearance calculated at 31 Plan Gentle hydration due to CHF Avoid nephrotoxins and renally dose medications Qualifiers: Acute renal failure type: unspecified Chronic kidney disease stage: stage 3 (moderate) Qualified Code(s): N17.9 - Acute kidney failure, unspecified; N18.3 - Chronic kidney disease, stage 3 (moderate) (7) Type 2 diabetes mellitus, with long-term current use of insulin Current Visit: No Status: Chronic Assessment and plan: Low dose sliding scale insulin protocol and ACHS glucose checks Qualifiers: Diabetes mellitus complication status: with kidney complications Diabetes mellitus complication detail: with chronic kidney disease Chronic kidney disease stage: stage 3 (moderate) Qualified Code(s): E11.22 - Type 2 diabetes mellitus with diabetic chronic kidney disease; N18.3 - Chronic kidney disease, stage 3 (moderate); N18.3 - Chronic kidney disease, stage 3 (moderate); Z79.4 - skilled nursing (current) use of insulin; Z79.4 - technician terminal and repeater (current) use of insulin; Z79.4 - skilled nursing (current) use of insulin; Z79.4 - skilled nursing (current) use of insulin (8) CAD (coronary artery disease) Current Visit: No Status: Chronic Assessment and plan: History of CAD with multiple stents and CABG Continue home medications crestor, lopressor, imdur Qualifiers: Coronary Disease-Associated Artery/Lesion type: [place] artery [place] vs. transplanted heart: [place] heart Associated angina: without angina Qualified Code(s): I25.10 - Atherosclerotic heart disease of [place] coronary artery without angina pectoris (9) Hypertension Current Visit: No Status: Chronic Assessment and plan: Blood pressure currently stable Continue home medications amlodipine, clonidine, losartan Qualifiers: Hypertension type: unspecified Qualified Code(s): I10 - Essential (primary ) hypertension (10) DVT prophylaxis Current Visit: No Status: Acute Assessment and plan: Subcutaneous heparin 5000 units q8hr (11) Hyperlipidemia Current Visit: No Status: Chronic Assessment and plan: Continue home medication as seen above Qualifiers: Hyperlipidemia type: unspecified Qualified Code(s): E78.5 - Hyperlipidemia , unspecified - Time Spent With Patient Total time spent is greater than 50% in coordination of care (as documented) at patient's floor/unit and/or counseling patient: <Yuan Bautista - Last Filed: 07/06/18 22:30> Date of Encounter: 07/06/18 Internal Medicine - H&P: HPI History of present illness: Ms. Hall is a 78 year old female All Systems PM: A 10-system review of systems was performed and is negative for pertinent findings except as documented above in the HPI. - Constitutional Vitals: Temp Pulse Resp BP Pulse Ox 98.5 F 70 18 151/73 97 07/06/18 21:04 07/06/18 21:04 07/06/18 21:04 07/06/18 21:04 07/06/18 21:04 Internal Med - H&P Results - Labs CBC & Chem 7: 07/06/18 17:24 07/06/18 17:24 Labs: Cardiac Enzymes 07/06/18 Range/Units 21:28 Troponin I < 0.03 (< 0.04) ng/mL - Assessment and plan (1) COPD (chronic obstructive pulmonary disease) Current Visit: No Status: Chronic Qualifiers: COPD type: unspecified COPD Qualified Code(s): J44.9 - Chronic obstructive pulmonary disease, unspecified (2) Pneumonia Current Visit: Yes Status: Suspected Qualifiers: Pneumonia type: due to unspecified organism Laterality: right Lung location: lower lobe of lung Qualified Code(s): J18.1 - Lobar pneumonia, unspecified organism (3) Type 2 diabetes mellitus, with long-term current use of insulin Current Visit: No Status: Chronic Qualifiers: Diabetes mellitus complication status: with kidney complications Diabetes mellitus complication detail: with chronic kidney disease Chronic kidney disease stage: stage 3 (moderate) Qualified Code(s): E11.22 - Type 2 diabetes mellitus with diabetic chronic kidney disease; N18.3 - Chronic kidney disease, stage 3 (moderate); N18.3 - Chronic kidney disease, stage 3 (moderate); Z79.4 - technician terminal and repeater (current) use of insulin; Z79.4 - skilled nursing (current) use of insulin; Z79.4 - skilled nursing (current) use of insulin; Z79.4 - technician terminal and repeater (current) use of insulin (4) DVT prophylaxis Current Visit: No Status: Acute (5) CAD (coronary artery disease) Current Visit: No Status: Chronic Qualifiers: Coronary Disease-Associated Artery/Lesion type: [place] artery [place] vs. transplanted heart: [place] heart Associated angina: without angina Qualified Code(s): I25.10 - Atherosclerotic heart disease of [place] coronary artery without angina pectoris (6) Chest pain Current Visit: Yes Status: Acute Qualifiers: Chest pain type: chest pain on breathing Qualified Code(s): R07.1 - Chest pain on breathing; R07.81 - Pleurodynia (7) Shortness of breath Current Visit: Yes Status: Acute (8) Acute on chronic kidney failure Current Visit: Yes Status: Acute Qualifiers: Acute renal failure type: unspecified Chronic kidney disease stage: stage 3 (moderate) Qualified Code(s): N17.9 - Acute kidney failure, unspecified; N18.3 - Chronic kidney disease, stage 3 (moderate) (9) Acute on chronic diastolic congestive heart failure Current Visit: Yes Status: Suspected (10) Hypertension Current Visit: No Status: Chronic Qualifiers: Hypertension type: unspecified Qualified Code(s): I10 - Essential (primary ) hypertension (11) Hyperlipidemia Current Visit: No Status: Chronic Qualifiers: Hyperlipidemia type: unspecified Qualified Code(s): E78.5 - Hyperlipidemia , unspecified - Time Spent With Patient Total time spent is greater than 50% in coordination of care (as documented) at patient's floor/unit and/or counseling patient: - Attending Attestation Griselda Hall is an 78 year old obese woman with hypertension, diabetes, COPD, coronary artery disease and CKD who presents here with a chief complaint of left-sided chest pain that was of acute onset and starting around 1 PM today. This was accompanied by shortness of breath and states that it is exacerbated with deep breaths. She denies any fever, cough or chills. She does note that she has been having increasing swelling in her legs with the past number of weeks responsive to her home diuretics. On arrival here she was not hypoxic and her vital signs were within normal limits. She received 1 sublingual nitroglycerin and 40 mg of furosemide which she says has not really improved her symptoms as the pain persists. She states that she has never had this before. She states that in the past she has been told she has fluid in her lungs. My assessment she was lying in bed in no acute distress saturating 100% on 2 L nasal cannula. Afebrile. Diminished breath sounds in both lower lung [place] with fine rales on the right side base. Abdomen is distended but soft and nontender to palpation. 2-3+ pitting edema of both lower extremities but nontender. AAO 3. Chest x-ray reviewed independently by me and compared to previous; depicted of a right lower lobe hazy infiltrate. Lab work remarkable for stable CBC and BMP parameters and a negative UA. We will admit for observation due to acute chest pain and shortness of breath. She has risk factors for coronary artery disease which would warrant trending troponins and monitoring on telemetry with peaked EKGs. Highly concerned for acute pulmonary embolism even the acuity in presentation however her current creatinine clearance negates the possibility of a contrast study of her lungs. We will get a VQ scan although this is hindered by the underlying abnormalities already in existence on x-ray. We will check a d-dimer and give one shot of low molecular weight heparin in the interim if elevated and also obtain a repeat echo to assess for right heart strain which could be a marker of PE. Infiltrate concerning for new or brewing pneumonia although at this time she is not hypoxic or having productive cough; in any case will start empiric coverage for CAP with cultures to be obtained prior.
[2018-07-06] MEDS: Metoprolol 100 MG TABLET PO SCH (21:42)
[2018-07-06] MEDS: Gabapentin 100 MG CAPSULE PO SCH (21:42)
[2018-07-06] MEDS: hydrALAZINE 25 MG TABLET PO SCH (21:42)
[2018-07-06] MEDS: cloNIDine HCl 0.1 MG TABLET PO SCH (21:42)
[2018-07-06 21:46] LABS: Heparin anti-factor XA LMWH 0.07 IU/mL (0.50-1.10)
[2018-07-06 21:47] LABS: Prothrombin Time 11.5 Seconds (9.4-12.1)
[2018-07-06 21:48] LABS: Activated Partial Thrombo Time 41.2 Seconds (26.0-36.0)
[2018-07-06] MEDS ORDERED: *HR* Heparin 5,000 UNIT/ML VIAL SQ SCH (22:00)
[2018-07-06] MEDS ORDERED: Levofloxacin 500 MG/100 ML 500 MG/100 ML BAG IVPB SCH (22:00)
[2018-07-06] MEDS ORDERED: *HR* Enoxaparin 100 MG/ML SYRINGE SQ STA (22:30)
[2018-07-06] MEDS: Budesonide/Formoterol 80/4.5 MDI IH SCH (23:22)
[2018-07-07] MEDS: Insulin LISPRO 300 UNITS/3 ML VIAL SQ SCH ×5 (00:18→21:17)
[2018-07-07] MEDS: Ipratropium/Albuterol Neb 3 ML IH SCH ×6 (03:59→23:36)
[2018-07-07] MEDS: cloNIDine HCl 0.1 MG TABLET PO SCH ×3 (07:39→21:11)
[2018-07-07] MEDS: hydrALAZINE 25 MG TABLET PO SCH ×3 (07:39→21:11)
[2018-07-07] MEDS: Metoprolol 100 MG TABLET PO SCH ×2 (07:40→21:11)
[2018-07-07] MEDS: amLODIPine 5 MG TABLET PO SCH (07:40)
[2018-07-07] MEDS: Furosemide 40 MG TABLET PO SCH ×2 (07:49→16:22)
[2018-07-07] MEDS: Aspirin 81 MG TAB.CHEW PO SCH (07:49)
[2018-07-07] MEDS: Isosorbide MONOnitrate (24 HR) 60 MG TAB.ER.24H PO SCH (07:49)
[2018-07-07] MEDS: Gabapentin 100 MG CAPSULE PO SCH ×4 (07:49→21:11)
[2018-07-07] MEDS: Budesonide/Formoterol 80/4.5 MDI IH SCH ×2 (08:02→19:45)
--- NOTE | 2018-07-07 11:35 | Internal Med Progress Note ---
Hospitalist Progress Note - Encounter Date of Encounter: 07/07/18 Time of Encounter: 11:33 - Subjective Interval History: Patient seen and examined in the room, she still having chest tightness, dry cough, and shortness breath. No fever, chills, or night sweats. - Exam Vitals: Temp Pulse Resp BP Pulse Ox 98.7 F 63 16 99/42 98 07/07/18 06:57 07/07/18 06:57 07/07/18 08:08 07/07/18 06:57 07/07/18 08:08 Exam: PHYSICAL EXAMINATION: GENERAL APPEARANCE: The patient is alert, oriented and in no acute distress. HEENT: Head is normocephalic. The sinuses are nontender. Pupils are equal and reactive. The nares are patent. Oropharynx clear without lesions. NECK: Supple without lymphadenopathy. HEART: Regular rate and rhythm. LUNGS: diffuse wheezing bilaterally. ABDOMEN: Soft, nontender, nondistended with good bowel sounds heard. Inguinal area is normal. EXTREMITIES: 1+ pitting edema bilaterally. NEUROLOGICAL: Gross nonfocal. SKIN: Warm and dry without any rash. - Assessment and Plan (1) COPD (chronic obstructive pulmonary disease) Current Visit: No Status: Chronic Assessment and Plan: COPD exacerbation due to possible pneumonia and fluid overload. Plan Continue Inhaled corticosteroid/bronchodilator/nebulizer Continue supplemental O2 (2) Pneumonia Current Visit: Yes Status: Suspected Assessment and Plan: CXR suspicious for right lower lobe infiltrate Patient was not admitted in last 90 days White count and temperature and vitals all within normal limits Patient does admit to non-productive cough Plan Empiric antibiotics with Levaquin. Blood cultures pending Legionella antigen and Streptococcus antigen negative (3) Type 2 diabetes mellitus, with long-term current use of insulin Current Visit: No Status: Chronic Assessment and Plan: Low dose sliding scale insulin protocol and ACHS glucose checks (4) CAD (coronary artery disease) Current Visit: No Status: Chronic Assessment and Plan: History of CAD with multiple stents and CABG Continue home medications ASA, crestor, lopressor, imdur (5) Chest pain Current Visit: Yes Status: Acute Assessment and Plan: Patient with Hx of CAD s/p stents, presented with chest pain. EKG showed normal sinus rhythm. Chest Xray showed atelectasis vs infiltrate Troponin < 0.03 x3. repeat ECHO showed EF 60-65%, normal LV and RV. - Chest pain is positional and pleuritic, likely caused by PNA. - Continue Abx, pending blood and sputum cx. (6) Shortness of breath Current Visit: Yes Status: Inactive Assessment and Plan: Patient has chronic shortness of breath with exacerbation Takes 80mg PO Lasix BID at home, states it didn't help. D-dimer 3194. Uses 2LO2 morning and night at home Saturating high 90s on 2L at presentation Received 40mg IV LAsix in ED Differentials include Pulmonary Embolism, Pleural Effusion, ACS, Pneumonia. repeat ECHO no RV strain. Pending V/Q scan and Doppler to BLE for DVT. Plan Continue supplemental O2 Continue home dose Lasix Levofloxacin 500mg IV Daily Rest of plan as seen above (7) Acute on chronic kidney failure Current Visit: Yes Status: Acute Assessment and Plan: Patient with CKD Current creatinine 2.15, baseline appears to be approximately 1.5 Creatinine clearance calculated at 31 Plan Avoid nephrotoxins and renally dose medications (8) Acute on chronic diastolic congestive heart failure Current Visit: Yes Status: Suspected Assessment and Plan: Patient with chronic diastolic heart failure with preserved EF Last echo 07/02/18 showed 55-60% EF with diastolic dysfunction and aortic stenosis. Repeat ECHO essentially normal. Takes 80mg BID PO LAsix at home Plan Continue home dose Lasix Strict Is and Os 2L fluid restricted cardiac/diabetic diet (9) Hypertension Current Visit: No Status: Chronic Assessment and Plan: Blood pressure currently stable Continue home medications amlodipine, clonidine, losartan (10) Hyperlipidemia Current Visit: No Status: Chronic Assessment and Plan: Continue home medication as seen above (11) DVT prophylaxis Current Visit: No Status: Acute Assessment and Plan: Subcutaneous heparin 5000 units q8hr - Time Spent with Patient Total time spent is greater than 50% in coordination of care (as documented) at patient's floor/unit and/or counseling patient: Greater than 35 minutes Plan of Care Discussed with: patient Internal Medicine: Result - Labs CBC & Chem 7: 07/06/18 17:24 07/06/18 17:24 Labs: Cardiac Enzymes 07/06/18 Range/Units 21:28 Troponin I < 0.03 (< 0.04) ng/mL - ABG Interpretation ABG results: PT/INR, D-dimer PT 11.5 Seconds (9.4-12.1) 07/06/18 21:23 D-Dimer 3194 ng/mLFEU (0-500) H 07/06/18 21:23 - Impressions Impressions Echocardiogram Limited Views 07/07/18 09:00 Impressions: Limited Echo. LVEF 60-65%. Normal LV chamber size, wall thickness and systolic function. Grossly normal right ventricular structure and function. Unable to estimate pulmonary artery pressure due to lack of TR jet. Left Ventricular Wall Motion: Rest Echo Findings All wall segments showed normal motion. Findings: Cooments * Limited Echo. Study Quality * Technically adequate exam. ECG Findings * Normal sinus rhythm. Left Ventricle * LVEF 60-65%. * Normal LV chamber size, wall thickness and systolic function. Right Ventricle * RV not well seen, but grossly normal right ventricular structure and function. Left Atrium * Normal left atrial size. Right Atrium * Normal right atrial size. Tricuspid Valve * Tricuspid valve not well visualized. * No tricuspid regurgitation. * Estimated RA pressure is 5 mmHg. * Unable to estimate RVSP due to lack of TR jet. Consult Discharge Plan - Plan Referrals: Heath Darnell MD [Primary Care Provider] - (Requested a follow up appoinment in 7-10 days. ) (1) COPD (chronic obstructive pulmonary disease) Qualifiers: COPD type: unspecified COPD Qualified Code(s): J44.9 - Chronic obstructive pulmonary disease, unspecified (2) Pneumonia Qualifiers: Pneumonia type: due to unspecified organism Laterality: right Lung location : lower lobe of lung Qualified Code(s): J18.1 - Lobar pneumonia, unspecified organism (3) Type 2 diabetes mellitus, with long-term current use of insulin Qualifiers: Diabetes mellitus complication status: with kidney complications Diabetes mellitus complication detail: with chronic kidney disease Chronic kidney disease stage: stage 3 (moderate) Qualified Code(s): E11.22 - Type 2 diabetes mellitus with diabetic chronic kidney disease; N18.3 - Chronic kidney disease, stage 3 (moderate); N18.3 - Chronic kidney disease, stage 3 (moderate); Z79.4 - termination clerk (current) use of insulin; Z79.4 - detention (current) use of insulin; Z79.4 - termination clerk (current) use of insulin; Z79.4 - detention (current) use of insulin (4) CAD (coronary artery disease) Qualifiers: Coronary Disease-Associated Artery/Lesion type: [place] artery [place] vs. transplanted heart: [place] heart Associated angina: without angina Qualified Code(s): I25.10 - Atherosclerotic heart disease of [place] coronary artery without angina pectoris (5) Chest pain Qualifiers: Chest pain type: chest pain on breathing Qualified Code(s): R07.1 - Chest pain on breathing; R07.81 - Pleurodynia (7) Acute on chronic kidney failure Qualifiers: Acute renal failure type: unspecified Chronic kidney disease stage: stage 3 ( moderate) Qualified Code(s): N17.9 - Acute kidney failure, unspecified; N18.3 - Chronic kidney disease, stage 3 (moderate) (9) Hypertension Qualifiers: Hypertension type: unspecified Qualified Code(s): I10 - Essential (primary) hypertension (10) Hyperlipidemia Qualifiers: Hyperlipidemia type: unspecified Qualified Code(s): E78.5 - Hyperlipidemia, unspecified
[2018-07-07] MEDS: Latanoprost 2.5 ML BOTTLE BOTH EYES SCH (18:03)
[2018-07-07] MEDS: Albuterol 2.5 MG/3 ML NEBULIZER IH SCH (19:44)
[2018-07-08] MEDS: Albuterol 2.5 MG/3 ML NEBULIZER IH SCH ×4 (03:55→20:38)
[2018-07-08] MEDS: Ipratropium/Albuterol Neb 3 ML IH SCH ×6 (03:55→23:45)
[2018-07-08 04:39] LABS: Basophils % 0.3 %; Eosinophils # 0.2 K/mcL (0.0-0.6); Eosinophils % 3.9 %; Hematocrit 24.9 % (35.3-44.9); Hemoglobin 7.9 g/dL (11.5-15.4); Immature Granulocytes % 0.5 % (0-4); Lymphocytes # 1.5 K/mcL (0.6-4.6); Lymphocytes % 37.4 %; Mean Corpuscular HGB Conc 31.7 g/dL (31.6-35.5); Mean Corpuscular Hemoglobin 28.5 pg (28.0-33.3); Mean Corpuscular Volume 89.9 fL (83.0-100.0); Mean Platelet Volume 9.4 fL (9.4-12.4); Monocytes # 0.3 K/mcL (0.0-1.3); Monocytes % 7.2 %; Platelet Count 194 K/mcL (140-400); Red Blood Count 2.77 M/mcL (3.82-4.97); Segmented Neutrophils % 50.7 %
[2018-07-08 05:01] LABS: Calcium 9.5 mg/dL (8.6-10.3); Potassium 3.7 mEq/L (3.5-5.1)
[2018-07-08] MEDS: Budesonide/Formoterol 80/4.5 MDI IH SCH ×2 (07:47→20:36)
[2018-07-08] MEDS: Insulin LISPRO 300 UNITS/3 ML VIAL SQ SCH ×4 (08:52→21:10)
[2018-07-08] MEDS: amLODIPine 5 MG TABLET PO SCH (08:52)
[2018-07-08] MEDS: Gabapentin 100 MG CAPSULE PO SCH ×4 (08:52→21:08)
[2018-07-08] MEDS: Metoprolol 100 MG TABLET PO SCH ×2 (08:52→21:08)
[2018-07-08] MEDS: Furosemide 40 MG TABLET PO SCH ×2 (08:52→17:06)
[2018-07-08] MEDS: Isosorbide MONOnitrate (24 HR) 60 MG TAB.ER.24H PO SCH (08:53)
[2018-07-08] MEDS: hydrALAZINE 25 MG TABLET PO SCH ×3 (08:53→21:08)
[2018-07-08] MEDS: cloNIDine HCl 0.1 MG TABLET PO SCH ×3 (08:53→21:08)
[2018-07-08] MEDS: Aspirin 81 MG TAB.CHEW PO SCH (08:53)
--- NOTE | 2018-07-08 10:33 | Internal Med Progress Note ---
Hospitalist Progress Note - Encounter Date of Encounter: 07/08/18 Time of Encounter: 10:31 - Subjective Interval History: Patient seen and examined in the room, chest tightness, dry cough, and shortness breath have improved with treatment.. No fever, chills, or night sweats. - Exam Vitals: Temp Pulse Resp BP Pulse Ox 98.7 F 72 16 118/51 97 07/08/18 07:14 07/08/18 07:14 07/08/18 07:47 07/08/18 07:14 07/08/18 07:47 Exam: PHYSICAL EXAMINATION: GENERAL APPEARANCE: The patient is alert, oriented and in no acute distress. HEENT: Head is normocephalic. The sinuses are nontender. Pupils are equal and reactive. The nares are patent. Oropharynx clear without lesions. NECK: Supple without lymphadenopathy. HEART: Regular rate and rhythm. LUNGS: diffuse wheezing bilaterally. ABDOMEN: Soft, nontender, nondistended with good bowel sounds heard. Inguinal area is normal. EXTREMITIES: 1+ pitting edema bilaterally. NEUROLOGICAL: Gross nonfocal. SKIN: Warm and dry without any rash. - Assessment and Plan (1) COPD (chronic obstructive pulmonary disease) Current Visit: No Status: Chronic Assessment and Plan: COPD exacerbation due to possible pneumonia. Plan Continue Inhaled corticosteroid/bronchodilator/nebulizer. Continue current treatment for pneumonia. Continue supplemental O2. symptoms have improved. (2) Pneumonia Current Visit: Yes Status: Suspected Assessment and Plan: CXR suspicious for right lower lobe infiltrate Patient was not admitted in last 90 days White count and temperature and vitals all within normal limits Patient does admit to non-productive cough Plan Continue antibiotics with Levaquin. Blood cultures pending. Legionella antigen and Streptococcus antigen negative (3) Type 2 diabetes mellitus, with long-term current use of insulin Current Visit: No Status: Chronic Assessment and Plan: Continue home basal insulin, Low dose sliding scale insulin protocol and ACHS glucose checks (4) CAD (coronary artery disease) Current Visit: No Status: Chronic Assessment and Plan: History of CAD with multiple stents and CABG Continue home medications ASA, crestor, lopressor, imdur (5) Chest pain Current Visit: Yes Status: Acute Assessment and Plan: Patient with Hx of CAD s/p stents, presented with chest pain. EKG showed normal sinus rhythm. Chest Xray showed atelectasis vs infiltrate Troponin < 0.03 x3. repeat ECHO showed EF 60-65%, normal LV and RV. - Chest pain is positional and pleuritic, likely caused by PNA. - Continue Abx, pending blood and sputum cx. (6) Shortness of breath Current Visit: Yes Status: Inactive Assessment and Plan: Patient has chronic shortness of breath with exacerbation Takes 80mg PO Lasix BID at home, states it didn't help. D-dimer 3194. Uses 2LO2 morning and night at home Saturating high 90s on 2L at presentation Received 40mg IV LAsix in ED Differentials include Pulmonary Embolism, Pleural Effusion, ACS, Pneumonia. repeat ECHO no RV strain. V/Q scan low probability for PE and Doppler to BLE negative for DVT. Plan Continue supplemental O2 Continue home dose Lasix Levofloxacin 500mg IV Daily (7) Acute on chronic kidney failure Current Visit: Yes Status: Acute Assessment and Plan: Patient with CKD Current creatinine 2.15, baseline appears to be approximately 1.5 Creatinine clearance calculated at 31 Plan Avoid nephrotoxins and renally dose medications (8) Acute on chronic diastolic congestive heart failure Current Visit: Yes Status: Suspected Assessment and Plan: Patient with chronic diastolic heart failure with preserved EF Last echo 07/02/18 showed 55-60% EF with diastolic dysfunction and aortic stenosis. Repeat ECHO essentially normal. Takes 80mg BID PO LAsix at home Plan Continue home dose Lasix Strict Is and Os 2L fluid restricted cardiac/diabetic diet (9) Hypertension Current Visit: No Status: Chronic Assessment and Plan: Blood pressure currently stable Continue home medications amlodipine, clonidine, losartan (10) Hyperlipidemia Current Visit: No Status: Chronic Assessment and Plan: Continue home medication as seen above (11) DVT prophylaxis Current Visit: No Status: Acute Assessment and Plan: Subcutaneous heparin 5000 units q8hr - Time Spent with Patient Total time spent is greater than 50% in coordination of care (as documented) at patient's floor/unit and/or counseling patient: Greater than 35 minutes Plan of Care Discussed with: patient Internal Medicine: Result - Labs CBC & Chem 7: 07/08/18 03:38 07/08/18 03:38 Labs: Short CBC 07/08/18 Range/Units 03:38 WBC 3.9 L (4.3-11.1) K/mcL Hgb 7.9 L (11.5-15.4) g/dL Hct 24.9 L (35.3-44.9) % Plt Count 194 (140-400) K/mcL Neutrophils # 2.0 (1.6-8.9) K/mcL BMP 07/08/18 03:38 Sodium 138 Potassium 3.7 Chloride 96 L Carbon Dioxide 31 H BUN 44 H Creatinine 2.55 H Glucose 201 H Calcium 9.5 - ABG Interpretation ABG results: PT/INR, D-dimer PT 11.5 Seconds (9.4-12.1) 07/06/18 21:23 D-Dimer 3194 ng/mLFEU (0-500) H 07/06/18 21:23 - Impressions Impressions Echocardiogram Limited Views 07/07/18 09:00 Impressions: Limited Echo. LVEF 60-65%. Normal LV chamber size, wall thickness and systolic function. Grossly normal right ventricular structure and function. Unable to estimate pulmonary artery pressure due to lack of TR jet. Left Ventricular Wall Motion: Rest Echo Findings All wall segments showed normal motion. Findings: Cooments * Limited Echo. Study Quality * Technically adequate exam. ECG Findings * Normal sinus rhythm. Left Ventricle * LVEF 60-65%. * Normal LV chamber size, wall thickness and systolic function. Right Ventricle * RV not well seen, but grossly normal right ventricular structure and function. Left Atrium * Normal left atrial size. Right Atrium * Normal right atrial size. Tricuspid Valve * Tricuspid valve not well visualized. * No tricuspid regurgitation. * Estimated RA pressure is 5 mmHg. * Unable to estimate RVSP due to lack of TR jet. Pulmonary Perfusion Imaging 07/07/18 11:31 IMPRESSION: Low probability for pulmonary embolus. D/ 07/07/2018 13:17:26 Carlos A Katz MD / chiquita Interpreting Provider: Carlos A Katz MD Consult Discharge Plan - Plan Referrals: Heath Darnell MD [Primary Care Provider] - (Requested a follow up appoinment in 7-10 days. ) (1) COPD (chronic obstructive pulmonary disease) Qualifiers: COPD type: unspecified COPD Qualified Code(s): J44.9 - Chronic obstructive pulmonary disease, unspecified (2) Pneumonia Qualifiers: Pneumonia type: due to unspecified organism Laterality: right Lung location : lower lobe of lung Qualified Code(s): J18.1 - Lobar pneumonia, unspecified organism (3) Type 2 diabetes mellitus, with long-term current use of insulin Qualifiers: Diabetes mellitus complication status: with kidney complications Diabetes mellitus complication detail: with chronic kidney disease Chronic kidney disease stage: stage 3 (moderate) Qualified Code(s): E11.22 - Type 2 diabetes mellitus with diabetic chronic kidney disease; N18.3 - Chronic kidney disease, stage 3 (moderate); Z79.4 - longterm (current) use of insulin (4) CAD (coronary artery disease) Qualifiers: Coronary Disease-Associated Artery/Lesion type: [place] artery [place] vs. transplanted heart: [place] heart Associated angina: without angina Qualified Code(s): I25.10 - Atherosclerotic heart disease of [place] coronary artery without angina pectoris (5) Chest pain Qualifiers: Chest pain type: chest pain on breathing Qualified Code(s): R07.1 - Chest pain on breathing; R07.81 - Pleurodynia (7) Acute on chronic kidney failure Qualifiers: Acute renal failure type: unspecified Chronic kidney disease stage: stage 3 ( moderate) Qualified Code(s): N17.9 - Acute kidney failure, unspecified; N18.3 - Chronic kidney disease, stage 3 (moderate) (9) Hypertension Qualifiers: Hypertension type: unspecified Qualified Code(s): I10 - Essential (primary) hypertension (10) Hyperlipidemia Qualifiers: Hyperlipidemia type: unspecified Qualified Code(s): E78.5 - Hyperlipidemia, unspecified
[2018-07-08] MEDS ORDERED: LEVOFLOXACIN 500 MG/100 ML MLS IVPB SCH (15:00)
[2018-07-08] MEDS: Latanoprost 2.5 ML BOTTLE BOTH EYES SCH (17:05)
[2018-07-08] MEDS ORDERED: Levofloxacin 250 MG/50 ML 250 MG/50 ML BAG IVPB SCH (21:00)
[2018-07-08] MEDS: Insulin DETEMIR 100 UNIT/ML X5UNITS SQ SCH (21:09)
[2018-07-09] MEDS: Albuterol 2.5 MG/3 ML NEBULIZER IH SCH (03:52)
[2018-07-09] MEDS: Ipratropium/Albuterol Neb 3 ML IH SCH ×2 (03:53→07:33)
[2018-07-09 04:12] LABS: Basophils % 0.2 %; Eosinophils # 0.3 K/mcL (0.0-0.6); Eosinophils % 4.8 %; Hematocrit 26.2 % (35.3-44.9); Hemoglobin 8.2 g/dL (11.5-15.4); Immature Granulocytes % 0.4 % (0-4); Lymphocytes # 1.2 K/mcL (0.6-4.6); Lymphocytes % 23.9 %; Mean Corpuscular HGB Conc 31.3 g/dL (31.6-35.5); Mean Corpuscular Hemoglobin 28.6 pg (28.0-33.3); Mean Corpuscular Volume 91.3 fL (83.0-100.0); Mean Platelet Volume 9.1 fL (9.4-12.4); Monocytes # 0.3 K/mcL (0.0-1.3); Monocytes % 4.8 %; Neutrophils # 3.4 K/mcL (1.6-8.9); Platelet Count 194 K/mcL (140-400); Red Blood Count 2.87 M/mcL (3.82-4.97); Segmented Neutrophils % 65.9 %
[2018-07-09 04:36] LABS: Calcium 9.4 mg/dL (8.6-10.3); Potassium 3.5 mEq/L (3.5-5.1)
[2018-07-09 06:46] VITALS: BP 107/56
[2018-07-09] MEDS: Budesonide/Formoterol 80/4.5 MDI IH SCH (07:33)
[2018-07-09] MEDS: cloNIDine HCl 0.1 MG TABLET PO SCH (08:01)
[2018-07-09] MEDS: Isosorbide MONOnitrate (24 HR) 60 MG TAB.ER.24H PO SCH (08:02)
[2018-07-09] MEDS: Gabapentin 100 MG CAPSULE PO SCH (08:02)
[2018-07-09] MEDS: Furosemide 40 MG TABLET PO SCH (08:02)
[2018-07-09] MEDS: Aspirin 81 MG TAB.CHEW PO SCH (08:02)
[2018-07-09] MEDS: Metoprolol 100 MG TABLET PO SCH (08:03)
[2018-07-09] MEDS: amLODIPine 5 MG TABLET PO SCH (08:03)
[2018-07-09] MEDS: hydrALAZINE 25 MG TABLET PO SCH (08:03)
[2018-07-09] MEDS: Insulin LISPRO 300 UNITS/3 ML VIAL SQ SCH (08:04)
[2018-07-09] MEDS: Insulin DETEMIR 100 UNIT/ML X5UNITS SQ SCH (08:15)
--- NOTE | 2018-07-09 09:45 | Discharge Summary ---
- NOTES TO OUTPATIENT PROVIDER Notes to Outpatient Provider: f/u with PCP within a week. Orders not resulted at time of discharge: Pending orders 07/06/18 21:23 Culture,Blood [BC] Routine Date of Encounter: 07/09/18 Time of Encounter: 09:40 - Discharge Diagnosis (1) COPD (chronic obstructive pulmonary disease) Priority: Primary Status: Chronic Qualifiers: COPD type: unspecified COPD Qualified Code(s): J44.9 - Chronic obstructive pulmonary disease, unspecified (2) Pneumonia Priority: Primary Status: Suspected Qualifiers: Pneumonia type: due to unspecified organism Laterality: right Lung location: lower lobe of lung Qualified Code(s): J18.1 - Lobar pneumonia, unspecified organism (3) Type 2 diabetes mellitus, with long-term current use of insulin Priority: Secondary Status: Chronic Qualifiers: Diabetes mellitus complication status: with kidney complications Diabetes mellitus complication detail: with chronic kidney disease Chronic kidney disease stage: stage 3 (moderate) Qualified Code(s): E11.22 - Type 2 diabetes mellitus with diabetic chronic kidney disease; N18.3 - Chronic kidney disease, stage 3 (moderate); Z79.4 - [facility] (current) use of insulin (4) CAD (coronary artery disease) Priority: Secondary Status: Chronic Qualifiers: Coronary Disease-Associated Artery/Lesion type: [place] artery [place] vs. transplanted heart: [place] heart Associated angina: without angina Qualified Code(s): I25.10 - Atherosclerotic heart disease of [place] coronary artery without angina pectoris (5) Chest pain Priority: Primary Status: Acute Qualifiers: Chest pain type: chest pain on breathing Qualified Code(s): R07.1 - Chest pain on breathing; R07.81 - Pleurodynia (6) Shortness of breath Priority: Primary Status: Resolved (7) Acute on chronic kidney failure Priority: Primary Status: Acute Qualifiers: Acute renal failure type: unspecified Chronic kidney disease stage: stage 3 (moderate) Qualified Code(s): N17.9 - Acute kidney failure, unspecified; N18.3 - Chronic kidney disease, stage 3 (moderate) (8) Acute on chronic diastolic congestive heart failure Priority: Secondary Status: Suspected (9) Hypertension Priority: Secondary Status: Chronic Qualifiers: Hypertension type: unspecified Qualified Code(s): I10 - Essential (primary ) hypertension (10) Hyperlipidemia Priority: Secondary Status: Chronic Qualifiers: Hyperlipidemia type: unspecified Qualified Code(s): E78.5 - Hyperlipidemia , unspecified (11) DVT prophylaxis Priority: Primary Status: Acute Hospital course: Ms. Hall is a 78 year old female with a past medical history of congestive heart failure, COPD, CAD, diabetes, GERD, hyperlipidemia, hypertension, chronic kidney disease. She presented with the chief complaint of shortness of breath and chest pain. She states that she always has shortness of breath however this worsened today along with the presentation of chest pain. She states the chest pain is diffuse however worst in the left lower chest. She states that her shortness of breath and chest pain or worse with deep breathing, movement but are still present at rest. She also complains of a new onset cough that is nonproductive. She denies any recent medication changes or travel or trauma. She also denies smoking or alcohol use or recreational drug use. chest x-ray showed possible pneumonia, echocardiogram was repeated, which has no significant change comparing previous one. Patient was treated with pneumonia, she received 3 days of IV antibiotics and treatment for COPD, symptoms have improved. She will be discharged home today. She was instructed to continue to take oral antibiotics for 7 more days. She was also instructed to continue follow-up with PCP within 2 weeks. Discharge discussed with: patient Time spent discussing smoking cessation with patient: more than 10 minutes - Time Spent with Patient Total time spent providing and/or coordinating discharge services: Greater than 30 minutes - Discharge Medications Prescriptions: levoFLOXacin [Levaquin] 250 mg PO DAILY #7 tablet Home Medications: Aspirin 81 mg PO DAILY tab.chew 05/15/15 [Rx] Amlodipine Besylate 10 mg PO DAILY 08/08/16 [History] Bimatoprost [Lumigan] 1 drop OP QPM 08/08/16 [History] Cyclobenzaprine [Flexeril] 10 mg PO HS 08/08/16 [History] Fluticasone/Salmeterol [Advair 250-50 Diskus] 1 puff IH BID 08/08/16 [History] Hydralazine HCl 100 mg PO TID 08/08/16 [History] Linagliptin [Tradjenta] 5 mg PO DAILY 08/08/16 [History] Metoprolol [Lopressor] 100 mg PO BID 08/08/16 [History] Oxygen 2 l NS AD 08/08/16 [History] cloNIDine HCl [Clonidine HCl] 0.3 mg PO TID 08/08/16 [History] Ipratropium/Albuterol Neb [Duoneb] 3 ml IH Q4HR #30 vial.neb 11/22/16 [Rx] Potassium Chloride [K-Tab ER] 20 meq PO QID 06/17/17 [History] Isosorbide MONOnitrate (24 HR) [Imdur] 60 mg PO DAILY 11/22/17 [History] Albuterol Sulfate [Proair Respiclick] 90 mcg IH HS 07/06/18 [History] Allopurinol [Zyloprim 100 MG] 100 mg PO DAILY 07/06/18 [History] Calcitriol [Rocaltrol] 0.25 mcg PO DAILY 07/06/18 [History] Clopidogrel [Plavix] 75 mg PO DAILY 07/06/18 [History] Furosemide [Lasix] 80 mg PO BID 07/06/18 [History] Gabapentin [Neurontin] 100 mg PO QID 07/06/18 [History] Insulin Glargine,Hum.rec.anlog [Basaglar Kwikpen U-100] 70 unit SQ HS 07/06/18 [ History] Insulin LISPRO [Humalog] 0 unit SQ TIDWM 07/06/18 [History] Levothyroxine Sodium [Levoxyl] 150 mcg PO QAM 07/06/18 [History] Losartan [Cozaar] 25 mg PO DAILY 07/06/18 [History] Omeprazole [PriLOSEC] 20 mg PO BID 07/06/18 [History] Polyethylene Glycol 3350 [MiraLAX] 17 gm PO DAILY 07/06/18 [History] Rosuvastatin Calcium 40 mg PO DAILY 07/06/18 [History] levoFLOXacin [Levaquin] 250 mg PO DAILY #7 tablet 07/09/18 [Rx] Allergies/Adverse Reactions: 3 Allergy/AdvReac Type Severity Reaction Status Date / Time carbamazepine Allergy Hives Verified 06/17/17 09:27 promethazine Allergy See Verified 06/17/17 09:27 Comments Date of admission: 07/06/18 18:48 Primary care physician: Heath Darnell MD Consults: 07/07/18 08:40 PT [Consult to Physical Therapy] [CONS] Routine Comment: Evaluate, develop and implement POC Reason for Consult: weakness Does patient have active BEDREST order?: No Is patient medically & hemodynamically stable?: Yes Patient assessed for mobility or mobilized this visit?: No 07/07/18 08:41 OT [Consult to Occupational Therapy] [CONS] Routine Comment: Evaluate, develop and implement POC Reason for Consult: weakness Does patient have active BEDREST order?: No Is patient medically & hemodynamically stable?: Yes Patient assessed for mobility or mobilized this visit?: No 07/08/18 11:13 Consult to Nurse Navigator [CONS] Routine Comment: PNEUMONIA Anticipated date of discharge: 07/09/18 - Constitutional Vitals: Temp Pulse Resp BP Pulse Ox 98.9 F 70 16 107/56 99 07/09/18 06:45 07/09/18 06:45 07/09/18 07:33 07/09/18 06:45 07/09/18 07:33 General appearance: Present: A&O X 3, answers questions appropriately Exam: PHYSICAL EXAMINATION: GENERAL APPEARANCE: The patient is alert, oriented and in no acute distress. HEENT: Head is normocephalic. The sinuses are nontender. Pupils are equal and reactive. The nares are patent. Oropharynx clear without lesions. NECK: Supple without lymphadenopathy. HEART: Regular rate and rhythm. LUNGS: diffuse wheezing bilaterally. ABDOMEN: Soft, nontender, nondistended with good bowel sounds heard. Inguinal area is normal. EXTREMITIES: 1+ pitting edema bilaterally. NEUROLOGICAL: Gross nonfocal. SKIN: Warm and dry without any rash. - Patient Status Disposition: Home, Self-Care Condition: Fair Overall status at discharge: patient is progressing back to baseline - Discharge Instructions Instructions: Heart Failure (DC), Chest Pain (DC), Diabetes Mellitus Type 2 in Adults (DC), Chronic Obstructive Pulmonary Disease (DC) Follow Up With: Heath Darnell MD [Primary Care Provider] - (Requested a follow up appoinment in 7-10 days. ) - Diet and Activity Activity: resume usual activities as tolerated Diet: advance to your usual diet
--- NOTE | 2018-07-09 10:47 | Electrocardiograph Report ---
[place] [address] Test Date: 2018-07-06 Pat Name: [facility] Department: [id number] Room: 3B12 Gender: F [employer] Res[employer]er: : 1940 Requested By: James Hernandez Order Number: [id number] Reading MD: Verna Wells Measurements Intervals [place] Rate: 73 P: 34 HI: 196 QRS: 11 QRSD: 98 T: 9 QT: 420 QTc: 463 Interpretive Statements Sinus rhythm Low voltage, precordial leads Electronically Signed On 07-09-2018 10:45:33 EDT by Verna Wells
== END 2018-07-09 13:00 | disposition home or self-care (01) ==
LOC: 3BNU 17:08 → EMEROOARM 17:08 → 3BNU 19:54
PROVIDERS: ADMIT Family Medicine; ATTEND Family Medicine